=== PATIENT | male | born 1980 | race Caucasian/White ===

== ENCOUNTER 2017-01-04 11:05 | Inpatient (IN) | payer SELFPAY ==
[~2017-01-04] VITALS: Ht 188 cm; Wt 111.8 kg
[~2017-01-04 11:05] MED LIST: METF500T PO
[2017-01-04] MEDS ORDERED: ONDANSETRON INJ 2 MG/ML 2 ML VIAL ONE (11:23)
[2017-01-04] MEDS ORDERED: ONDANSETRON INJ 2 MG/ML 2 ML VIAL IV STA ×2 (11:25→11:44)
[2017-01-04] MEDS ORDERED: METF-384 PO (11:28)
[2017-01-04] MEDS ORDERED: KETOROLAC TROMETHAMINE 30 MG/ML VIAL IV STA (11:44)
[2017-01-04] MEDS ORDERED: MoRPHine SULFATE 4 MG/ML 1 ML CARP\\VIAL IV STA (11:44)
[2017-01-04] MEDS ORDERED: SODIUM CHLORIDE 0.9% 1000ML 2,000 ML IV STA (11:44)
--- NOTE | 2017-01-04 11:50 | EMERGENCY ROOM VISIT NOTE ---
History Report prepared by Cb: Ana Laura Del Cid Under the Supervision of: Dr. Padma Cespedes M.D. First contact with patient: 11:44 Chief Complaint: VOMITING Stated Complaint: VOMITING Nursing Triage Summary: Sudden onset of vomiting this AM. Generalized abdominal pain. Dry heaves at this time. History of Present Illness The patient is a 36 year old male who presents to the Emergency Room with complaints of persistent nausea and vomiting that began this morning. He also complains of generalized abdominal pain and a few episodes of diarrhea. He has not noticed any blood in his stool. The patient took 4 mg Zofran about 10 minutes ago without any relief. He denies any sick contacts. Source of History: patient Onset: this morning Position: other (GI) Timing: other (persistent) Associated Symptoms: + abdominal pain, + diarrhea Review of Systems See HPI for pertinent positives & negatives. A total of 10 systems reviewed and were otherwise negative. Past Medical & Surgical Medical Problems: (1) Diabetes mellitus type 2 in nonobese (2) Lumbar herniated disc (3) Ureterolithiasis Surgical Problems: (1) H/O lithotripsy (2) History of appendectomy (3) Hx of decompressive lumbar laminectomy Family History FH: cancer FH: diabetes mellitus FH: gallbladder disease FH: hypertension FH: kidney disease Social History Smoking Status: Never Smoker Alcohol Use: none Drug Use: none Marital Status: single Housing Status: lives with family, unknown Occupation Status: employed Current/Historical Medications Scheduled Metformin Hcl (Glucophage), 1,000 MG PO BID Sitagliptin (Januvia), 1 TAB PO DAILY Allergies Coded Allergies: No Known Allergies (Verified , 05/18/16) Physical Exam Vital Signs Date Time Temp Pulse Resp B/P Pulse Ox O2 Delivery O2 Flow Rate FiO2 01/04/17 14:47 64 20 162/95 98 Room Air 01/04/17 14:03 62 20 166/110 96 Room Air 01/04/17 14:00 60 20 166/110 95 Room Air 01/04/17 13:34 68 01/04/17 12:16 72 20 174/105 98 Room Air 01/04/17 11:09 36.4 78 18 167/114 99 Room Air Physical Exam Vital signs reviewed. General: Well-appearing 36 year old male, in no significant distress. Noted to be hypertensive. Holding an emesis bag. HEENT: No scleral icterus, PERRLA, neck supple. Atraumatic. Cardiovascular: Regular rate and rhythm, no extra sounds. Pulmonary: Clear to auscultation bilaterally, normal work of breathing. Abdomen: Soft, mild diffuse abdominal tenderness, no rebound or guarding, nondistended, positive bowel sounds. Musculoskeletal: Atraumatic, no peripheral edema. Neurologic: Patient awake alert and oriented x 3, full strength in all 4 extremities. Cranial nerves 2 through 12 grossly intact. Skin: Warm, dry, no rash Medical Decision & Procedures Laboratory Results Test 01/04/17 11:20 Total Bilirubin 0.6 mg/dl (0.2-1) Direct Bilirubin < 0.1 mg/dl (0-0.2) Aspartate Amino Transf (AST/SGOT) 15 U/L (15-37) Alanine Aminotransferase (ALT/SGPT) 43 U/L (12-78) Alkaline Phosphatase 82 U/L (45-117) Total Protein 8.7 gm/dl (6.4-8.2) Albumin 4.7 gm/dl (3.4-5.0) Lipase 169 U/L (73-393) Laboratory results per my review. Medications Administered Medications (Trade) Dose Ordered Sig/Michael Route Start Time Stop Time Status Last Admin Dose Admin Ondansetron HCl (Zofran Inj) 4 mg STK-MED ONCE .ROUTE 01/04/17 11:23 01/04/17 11:27 DC 01/04/17 11:32 4 MG Ketorolac Tromethamine (Toradol Inj) 30 mg NOW STAT IV 01/04/17 11:44 01/04/17 11:46 DC 01/04/17 11:58 30 MG Morphine Sulfate (MoRPHine SULFATE INJ) 4 mg NOW STAT IV 01/04/17 11:44 01/04/17 11:46 DC 01/04/17 11:58 4 MG Ondansetron HCl 4 mg 4 mg NOW STAT IV 01/04/17 11:44 01/04/17 11:46 DC 01/04/17 11:57 4 MG Sodium Chloride 2,000 ml @ 999 mls/hr Q2H1M STAT IV 01/04/17 11:44 01/04/17 13:44 DC 01/04/17 11:44 999 MLS/HR Promethazine HCl/ Sodium Chloride (Phenergan Inj/ Nss 50ml) 50.5 ml @ 204 mls/hr NOW STAT IV 01/04/17 13:10 01/04/17 13:24 DC 01/04/17 14:01 204 MLS/HR Insulin Aspart (novoLOG PER UNIT) 10 units NOW ONCE SC 01/04/17 15:15 01/04/17 15:16 DC 01/04/17 15:18 10 UNITS ED Course 1144: The patient was evaluated in room C7. A complete history and physical examination was performed. Ordered NSS 2000 ml @ 999 mls/hr IV, Zofran Inj 4 mg IV, Morphine Sulfate 4 mg IV, Toradol Inj 30 mg IV. 1310: I reassessed the patient. Ordered Promethazine HCl 12.5 mg/NSS 50.5 ml @ 204 mls/hr IV. 1503: Upon reevaluation, the patient is resting comfortably. I discussed laboratory and radiographic results with him. He verbalized agreement of the treatment plan. 1506: I discussed the case with Dr. Sutherland. The patient will be evaluated for further management. 1515: Ordered Insulin Aspart 10 units SC. Medical Decision Differential diagnosis: Etiologies such as appendicitis, diverticulitis, PUD, biliary pathology, UTI, pancreatitis, obstruction, mesenteric ischemia, aortic pathology, infections, inflammatory bowel disease, renal colic, as well as others were entertained. This patient was evaluated and appeared to be in some discomfort. IV access was obtained and laboratory work was drawn. The patient was placed on the monitoring specialist and found to be in a normal sinus rhythm. He was hydrated with normal saline solution given IV Zofran. On my reevaluation, the patient continued to complain of nausea and vomiting. He was given IV morphine and Zofran. Laboratory work was obtained and reveals a hyperglycemia. Patient was given subcutaneous insulin. He continued with emesis and was given IV Phenergan. At this time I think the patient is best served by an observation stay for IV hydration, glucose management and medications for nausea and vomiting. He and his mother are aware of the plan and agree. Consults Time Called: 1450 Consulting Physician: Dr. Hayes Hospitalist Returned Call: [phone] I discussed the case with her. The patient will be evaluated for further management. Impression Primary Impression: Intractable vomiting Additional Impression: Hyperglycemia Scribe Attestation The scribe's documentation has been prepared under my direction and personally reviewed by me in its entirety. I confirm that the note above accurately reflects all work, treatment, procedures, and medical decision making performed by me. Departure Information Dispostion Being Evaluated By Hospitalist Prescriptions Sitagliptin (Januvia) 100 Mg Tab 1 TAB PO DAILY for 30 Days, #30 TAB 2 Refills Prov: Gilberto Escalante MD 01/05/17 Referrals Markel Brewster M.D. (PCP) Patient Instructions My [facility] Problem Qualifiers
[2017-01-04 12:07] LABS: BASO % 0.2 %; BASO ABS # 0.02 K/uL (0-0.2); COMPLETE YES; EOS % 0.2 %; HEMATOCRIT 48.3 % (42-52); IG% 0.3 %; LYMPH ABS # 1.74 K/uL (1.2-3.4); MEAN CELL VOLUME 85.5 fL (80-100); MEAN CORPUSCULAR HEMOGLOBIN 31.9 pg (25-34); MEAN CORPUSCULAR HGB CONC 37.3 g/dl (32-36); MEAN PLATELET VOLUME 9.9 fL (7.4-10.4); MONO % 3.9 %; NEUT % 81.4 %; PLATELET COUNT 287 K/uL (130-400); RED BLOOD COUNT 5.65 M/uL (4.7-6.1); WHITE BLOOD COUNT 12.41 K/uL (4.8-10.8)
[2017-01-04 12:15] LABS: ALT/SGPT 43 U/L (12-78); BLOOD UREA NITROGEN 13 mg/dl (7-18); BUN/CREATININE RATIO 11.9 (10-20); CALCIUM 10.3 mg/dl (8.5-10.1); CARBON DIOXIDE 22 mmol/L (21-32); CHLORIDE 101 mmol/L (98-107); GLUCOSE 342 mg/dl (70-99); SODIUM 139 mmol/L (136-145)
[2017-01-04 12:18] LABS: AST/SGOT 15 U/L (15-37)
[2017-01-04 12:25] LABS: ALKALINE PHOSPHATASE 82 U/L (45-117); BETA-HYDROXYBUTYRATE 7.36 mg/dL (0.2-2.81)
[2017-01-04] MEDS ORDERED: PROMETHAZINE HCL INJ 12.5 MG in SODIUM CHLORIDE 0.9% 50ML 50 ML IV STA (13:10)
[2017-01-04] MEDS ORDERED: INSULIN ASPART 100 UNITS/ML 3 ML PEN SC STA (14:50)
[2017-01-04] MEDS ORDERED: NovoLOG PER UNIT CHARGE SC ONE (15:15)
[2017-01-04] MEDS ORDERED: D5W AND NSS 1,000 ML IV SCH (15:35)
[2017-01-04] MEDS ORDERED: INSULIN IV INFUSION PROTOCOL STA (15:35)
[2017-01-04] MEDS ORDERED: MODERATE STRESS LEVEL ONE (15:45)
[2017-01-04] MEDS ORDERED: METOCLOPRAMIDE HCL INJ 5 MG/ML 2 ML VIAL IV PRN (15:45)
[2017-01-04] MEDS ORDERED: HHS GOAL RANGE 250-350 mg/dl ONE (15:45)
[2017-01-04] MEDS ORDERED: PHARMACY GLYCEMIC MGMT CONSULT PRN (15:45)
[2017-01-04] MEDS ORDERED: CLONIDINE HCL 0.1 MG TAB PO PRN (16:00)
[2017-01-04] MEDS ORDERED: ALUMINUM/MAGNESIUM/SIMETH (MAALOX MAX) 30 ML UDC PO PRN (16:00)
[2017-01-04] MEDS ORDERED: ACETAMINOPHEN 325 MG TAB PO PRN (16:00)
[2017-01-04 16:35] VITALS: BP 180/108; PULSE 65; TEMP 36.9; O2SAT 97
--- NOTE | 2017-01-04 16:39 | Pharmacy Progress Note ---
Glycemic: Assessment & Plan Date of Service Jan 04, 2017. Assessment & Plan ED Pharmacist Glycemic Short Note * Patient may have combination HHS and DKA * HHS evidenced by elevated osmolarity. Requires significant fluid resuscitation * DKA evidenced by elevated beta-hydroxybutyric acid and anion gap. Requires insulin administration (even if BSG's within goal) * Spoke w Dr. Escalante r/e above. * Patient being transferred from ED within a few minutes - OK to wait to start insulin gtt until on floor. * Higher goal range for HHS is appropriate. Will also add in dextrose to fluids to maintain BSG's while providing insulin to manage DKA * Spoke w Aurora (RN) on PCU * Aware will need to scan protocol to pharmacy and initiate insulin gtt on floor * Spoke w glycemic pharmacist who is aware of above
[2017-01-04 16:42] LABS: MAGNESIUM 1.8 mg/dl (1.8-2.4); POTASSIUM 3.9 mmol/L (3.5-5.1)
[2017-01-04] MEDS ORDERED: PANTOprazole INJ 40 MG in SYRINGE 0 ML IV ONE (16:45)
[2017-01-04 16:51] LABS: BETA-HYDROXYBUTYRATE 6.79 mg/dL (0.2-2.81)
[2017-01-04 16:59] VITALS: Ht 188 cm; Wt 111.8 kg
[2017-01-04 17:00] VITALS: O2SAT 96
[2017-01-04] MEDS ORDERED: GLUCOSE 10 TABS/TUBE PO PRN (17:00)
[2017-01-04] MEDS ORDERED: DEXTROSE 50% 50 ML SYR IV PRN (17:00)
[2017-01-04] MEDS ORDERED: GLUCAGON FOR INJ 1 MG VIAL SQ PRN (17:00)
[2017-01-04] MEDS ORDERED: GLUCOSE 40% GEL 15 GM TUBE PO PRN (17:00)
[2017-01-04] MEDS ORDERED: INSULIN HUMAN REGULAR IV BOLUS 3 UNIT in SYRINGE 0 ML IV ONE (17:00)
[2017-01-04] MEDS: INSULIN REGULAR 250 UNITS in SODIUM CHLORIDE 0.9% 250ML 250 ML IV SCH ×2 (17:08→18:00)
[2017-01-04] MEDS: ONDANSETRON INJ 2 MG/ML 2 ML VIAL IV PRN (17:28)
[2017-01-04] MEDS ORDERED: INSULIN ASPART 100 UNITS/ML 3 ML PEN SC SCH (17:30)
[2017-01-04] MEDS ORDERED: HydrALAZINE HCL 20 MG/ML VIAL IV. PRN (17:45)
[2017-01-04] MEDS ORDERED: HydrALAZINE HCL 20 MG/ML VIAL ONE (17:46)
--- NOTE | 2017-01-04 17:48 | DIAGNOSTIC IMAGING REPORT ---
CHEST ONE VIEW PORTABLE CLINICAL HISTORY: r/o pneumonia pneumonitis COMPARISON STUDY: 11/09/2015 FINDINGS: The bones soft tissues and hemidiaphragms are normal. The cardiomediastinal silhouette is normal. The lungs are clear. The pulmonary vasculature is normal. IMPRESSION: Negative chest. Electronically signed by: Markel Rivers M.D. 01/04/2017 5:46 PM Dictated Date/Time: 01/04/2017 5:46 PM
[2017-01-04] MEDS ORDERED: LORAZEPAM 2 MG/ML 1 ML VIAL IV PRN (18:30)
[2017-01-04] MEDS ORDERED: LORAZEPAM INJ 0.5 MG in SYRINGE 0.75 ML IV PRN (18:30)
[2017-01-04 19:10] VITALS: BP 175/80; PULSE 72; TEMP 36.8; O2SAT 98
[2017-01-04 20:00] VITALS: O2SAT 98
[2017-01-04 21:14] LABS: BLOOD UREA NITROGEN 11 mg/dl (7-18); BUN/CREATININE RATIO 11.2 (10-20); CALCIUM 9.1 mg/dl (8.5-10.1); CARBON DIOXIDE 23 mmol/L (21-32); CHLORIDE 105 mmol/L (98-107); CREATININE 0.97 mg/dl (0.60-1.40); GLUCOSE 281 mg/dl (70-99); MAGNESIUM 1.7 mg/dl (1.8-2.4); POTASSIUM 3.8 mmol/L (3.5-5.1); SODIUM 139 mmol/L (136-145)
[2017-01-04 21:15] LABS: PHOSPHORUS 2.7 mg/dl (2.5-4.9)
[2017-01-04] MEDS ORDERED: D5NSS + 20MEQ KCL 1,000 ML IV ONE (22:00)
[2017-01-04] MEDS: INSULIN GLARGINE SOLOSTAR 100 UNITS/ML 3 ML PEN SC SCH (22:51)
[2017-01-04 23:27] LABS: URINE APPEARANCE CLEAR (CLEAR); URINE BILIRUBIN NEG (NEG); URINE COLOR YELLOW; URINE NITRITE NEG (NEG); URINE SPECIFIC GRAVITY 1.041 (1.000-1.030); UROBILINOGEN NEG (NEG); ZZUR CULT IF INDIC CLEAN CATCH NO
[2017-01-04 23:30] LABS: MANUAL MICROSCOPIC REQUIRED? NO; REVIEW REQ? NO
[2017-01-04] MEDS ORDERED: MAGNESIUM SULFATE 1GM / D5W 1 GM in PREMIXED IN D5W 100 ML IV ONE (23:30)
[2017-01-04 23:57] VITALS: BP 158/81; PULSE 92; TEMP 36.9; O2SAT 95
[2017-01-04 23:59] VITALS: O2SAT 95
[2017-01-05] MEDS: ONDANSETRON INJ 2 MG/ML 2 ML VIAL IV PRN (00:01)
[2017-01-05] MEDS ORDERED: TRAMADOL HCL 50 MG TAB PO PRN (00:30)
[2017-01-05] MEDS ORDERED: MoRPHine SULFATE 4 MG/ML 1 ML CARP\\VIAL IV PRN (00:30)
[2017-01-05] MEDS ORDERED: ONDANSETRON INJ 2 MG/ML 2 ML VIAL IV PRN (00:30)
[2017-01-05] MEDS ORDERED: PROMETHAZINE HCL INJ 12.5 MG in SODIUM CHLORIDE 0.9% 50ML 50 ML IV PRN (00:30)
[2017-01-05] MEDS ORDERED: OPTIRAY 320 IV PRN (01:15)
--- NOTE | 2017-01-05 01:58 | History and Physical ---
History & Physical Date & Time of Service: Jan 05, 2017 at 01:50 Chief Complaint: Hyperglycemia Primary Care Physician: Markel Brewster M.D. History of Present Illness Source: patient, clinic records 36 year old male with history of DM 2 presenting with nausea and vomiting. Patient states he was doing fine until this morning when he started to have nausea and non bilous, non bloody vomiting associated with diarrhea. He denies abdominal pain, headache, dizziness, chest pain, palpitations, changes with urination. At the ER, patient was noted to be hyperglycemic with elevated anion gap and Betahydroxybutiric acid. He was given Novolog 10 units and antiemetics. On exam, patient states he feels somewhat better. Nausea somewhat improving. Denies active chest pain, dyspnea, cough, abdominal pain. Denies other symptoms. Past Medical/Surgical History Medical Problems: (1) Diabetes mellitus type 2 in nonobese Status: Chronic (2) Lumbar herniated disc Status: Chronic Surgical Problems: (1) H/O lithotripsy Status: Resolved (2) History of appendectomy Status: Resolved (3) Hx of decompressive lumbar laminectomy Status: Resolved Family History FH: cancer FH: diabetes mellitus FH: gallbladder disease FH: hypertension FH: kidney disease Social History Smoking Status: Former Smoker Drug Use: none Marital Status: single Housing status: lives with significant other Occupational Status: employed Immunizations History of Influenza Vaccine: No History of Tetanus Vaccine?: Yes Tetanus Immunization Date: Sep 20, 2007 History of Pneumococcal: No History of Hepatitis B Vaccine: Unknown Multi-Drug Resistant Organisms History of MDRO: No Allergies Coded Allergies: No Known Allergies (Verified , 05/18/16) Home Medications Scheduled Metformin Hcl (Glucophage), 1,000 MG PO BID Review of Systems Constitutional- no fever; no weight loss Eyes- no acute visual changes ENT- no sinus drainage; no pharyngitis Pulmonary- no cough, no wheezing, no shortness of breath Cardiac- no chest pain, no palpitations, no orthopnea, no dependent edema GI- (+) as noted above - no dysuria, no hematuria Musculoskeletal- no arthralgias, no myalgias Derm- no rashes, no new skin lesions, no changing skin lesions Hematologic- no unusual bruising, no unusual bleeding Lymphatics- no adenopathy Endocrine- no polyuria or polydipsia; no heat or cold intolerance Neuro- no headaches, no focal neurologic symptoms Psych- no anxiety, no depression Physical Exam Vital Signs Date Time Temp Pulse Resp B/P Pulse Ox O2 Delivery O2 Flow Rate FiO2 01/04/17 23:59 95 Room Air 01/04/17 23:57 36.9 92 17 158/81 95 Room Air 01/04/17 20:00 98 Room Air 01/04/17 19:10 36.8 72 18 175/80 98 Room Air 01/04/17 17:00 96 Room Air 01/04/17 16:35 36.9 65 18 180/108 97 Room Air 01/04/17 14:47 64 20 162/95 98 Room Air 01/04/17 14:03 62 20 166/110 96 Room Air 01/04/17 14:00 60 20 166/110 95 Room Air 01/04/17 13:34 68 01/04/17 12:16 72 20 174/105 98 Room Air 01/04/17 11:09 36.4 78 18 167/114 99 Room Air General Appearance: WD/WN, no apparent distress Head: normocephalic, atraumatic Eyes: normal inspection, EOMI, sclerae normal ENT: normal ENT inspection, hearing grossly normal, pharynx normal Neck: supple, no adenopathy, thyroid normal, no JVD, trachea midline Respiratory/Chest: chest non-tender, lungs clear, normal breath sounds, no respiratory distress, no accessory muscle use Cardiovascular: regular rate, rhythm, no edema, no JVD, no murmur Abdomen/GI: normal bowel sounds, non tender, soft, no organomegaly Back: normal inspection, no CVA tenderness Extremities/Musculoskelatal: normal inspection, no calf tenderness, no pedal edema Neurologic/Psych: foot specialist II-XII nml as tested, no motor/sensory deficits, alert, normal mood/affect, normal reflexes, oriented x 3 Skin: normal color, warm/dry, no rash Lymphatic: no adenopathy Diagnostics Laboratory Results Results Past 24 Hours Test 01/04/17 11:20 01/04/17 16:05 01/04/17 16:33 01/04/17 18:00 Range/Units White Blood Count 12.41 4.8-10.8 K/uL Red Blood Count 5.65 4.7-6.1 M/uL Hemoglobin 18.0 14.0-18.0 g/dL Hematocrit 48.3 42-52 % Mean Corpuscular Volume 85.5 80-100 fL Mean Corpuscular Hemoglobin 31.9 25-34 pg Mean Corpuscular Hemoglobin Concent 37.3 32-36 g/dl Platelet Count 287 130-400 K/uL Mean Platelet Volume 9.9 7.4-10.4 fL Neutrophils (%) (Auto) 81.4 % Lymphocytes (%) (Auto) 14.0 % Monocytes (%) (Auto) 3.9 % Eosinophils (%) (Auto) 0.2 % Basophils (%) (Auto) 0.2 % Neutrophils # (Auto) 10.11 1.4-6.5 K/uL Lymphocytes # (Auto) 1.74 1.2-3.4 K/uL Monocytes # (Auto) 0.48 0.11-0.59 K/uL Eosinophils # (Auto) 0.02 0-0.5 K/uL Basophils # (Auto) 0.02 0-0.2 K/uL RDW Standard Deviation 39.6 36.4-46.3 fL RDW Coefficient of Variation 12.7 11.5-14.5 % Immature Granulocyte % (Auto) 0.3 % Immature Granulocyte # (Auto) 0.04 0.00-0.02 K/uL Sodium Level 139 140 136-145 mmol/L Potassium Level 4.0 3.9 3.5-5.1 mmol/L Chloride Level 101 106 98-107 mmol/L Carbon Dioxide Level 22 22 21-32 mmol/L Anion Gap 16.0 12.0 3-11 mmol/L Blood Urea Nitrogen 13 12 7-18 mg/dl Creatinine 1.10 1.00 0.60-1.40 mg/dl Est Creatinine Clear Calc Drug Dose 118.9 130.8 ml/min Estimated GFR () 98.9 110.9 Estimated GFR (Non- 85.3 95.7 BUN/Creatinine Ratio 11.9 12.0 10-20 Random Glucose 342 303 70-99 mg/dl Osmolality 310 305 280-300 mOsm/kg Calcium Level 10.3 9.0 8.5-10.1 mg/dl Magnesium Level 2.0 1.8 1.8-2.4 mg/dl Total Bilirubin 0.6 0.2-1 mg/dl Direct Bilirubin < 0.1 0-0.2 mg/dl Aspartate Amino Transf (AST/SGOT) 15 15-37 U/L Alanine Aminotransferase (ALT/SGPT) 43 12-78 U/L Alkaline Phosphatase 82 45-117 U/L Total Protein 8.7 6.4-8.2 gm/dl Albumin 4.7 3.4-5.0 gm/dl Lipase 169 73-393 U/L Beta-Hydroxybutyric Acid 7.36 6.79 0.2-2.81 mg/dL Venous Blood pH 7.43 7.36-7.41 Lactic Acid Level 3.2 0.4-2.0 mmol/L Phosphorus Level 3.0 2.5-4.9 mg/dl Bedside Glucose 293 249 70-99 mg/dl Test 01/04/17 19:07 01/04/17 19:59 01/04/17 20:22 01/04/17 21:00 Range/Units Bedside Glucose 266 253 257 70-99 mg/dl Venous Blood pH 7.41 7.36-7.41 Sodium Level 139 136-145 mmol/L Potassium Level 3.8 3.5-5.1 mmol/L Chloride Level 105 98-107 mmol/L Carbon Dioxide Level 23 21-32 mmol/L Anion Gap 11.0 3-11 mmol/L Blood Urea Nitrogen 11 7-18 mg/dl Creatinine 0.97 0.60-1.40 mg/dl Est Creatinine Clear Calc Drug Dose 138.9 ml/min Estimated GFR () 115.1 Estimated GFR (Non- 99.3 BUN/Creatinine Ratio 11.2 10-20 Random Glucose 281 70-99 mg/dl Lactic Acid Level 3.0 0.4-2.0 mmol/L Calcium Level 9.1 8.5-10.1 mg/dl Phosphorus Level 2.7 2.5-4.9 mg/dl Magnesium Level 1.7 1.8-2.4 mg/dl Troponin I < 0.015 0-0.045 ng/ml Test 01/04/17 22:09 01/04/17 23:02 01/04/17 23:15 01/05/17 00:05 Range/Units Bedside Glucose 245 247 264 70-99 mg/dl Urine Color YELLOW Urine Appearance CLEAR CLEAR Urine pH 5.0 4.5-7.5 Urine Specific [place] 1.041 1.000-1.030 Urine Protein NEG NEG Urine Glucose (UA) 3+ NEG Urine Ketones 1+ NEG Urine Occult Blood NEG NEG Urine Nitrite NEG NEG Urine Bilirubin NEG NEG Urine Urobilinogen NEG NEG Urine Leukocyte Esterase NEG NEG Test 01/05/17 00:54 01/05/17 00:58 Range/Units Lactic Acid Level 2.1 0.4-2.0 mmol/L Bedside Glucose 248 70-99 mg/dl Microbiology Results 01/04/17 Blood Culture, Received Pending 01/04/17 Blood Culture, Received Pending 01/04/17 Urine Culture, Received Pending Diagnostic Radiology CXR: no acute findings EKG SR, no signs of acute infarct Impression Assessment and Plan 36 year old male with history of DM 2 presenting with nausea and vomiting. POSSIBLE HHS DM TYPE 2 - Insulin drip Labs q4h IV fluids - check A1c - no clear source of infection at this time patient admits to non compliance with medication and diet HYPERTENSION - may have underlying essential HTN - PRN Hydralazine for now monitor ELEVATED LACTIC ACID - IV fluids monitor DVT PROPHYLAXIS SCDS DIspo pending Advanced Directives Existing Living Will: No Existing Power of Machine Maintenance Technician: No VTE Prophylaxis VTE Risk Assessment Done? Y/N: Yes Risk Level: Moderate
[2017-01-05 03:39] VITALS: BP 143/78; PULSE 104; TEMP 37.2; O2SAT 96
[2017-01-05 04:00] VITALS: O2SAT 96
--- NOTE | 2017-01-05 04:10 | Pharmacy Progress Note ---
Glycemic Control Intl Consult Date of Service Jan 05, 2017. Scope Glycemic Pharmacist consulted by Dr Escalante on 01/04/17 for glycemic control and to write orders per formerly [facility] inpatient glycemic control protocol Objective Weight (Kilograms): 111.800 Accuchecks BSG (last 24hrs): Test 01/04/17 11:20 01/04/17 16:05 01/04/17 16:33 01/04/17 18:00 Random Glucose 342 mg/dl (70-99) 303 mg/dl (70-99) Bedside Glucose 293 mg/dl (70-99) 249 mg/dl (70-99) Test 01/04/17 19:07 01/04/17 19:59 01/04/17 20:22 01/04/17 21:00 Bedside Glucose 266 mg/dl (70-99) 253 mg/dl (70-99) 257 mg/dl (70-99) Random Glucose 281 mg/dl (70-99) Test 01/04/17 22:09 01/04/17 23:02 01/05/17 00:05 01/05/17 00:58 Bedside Glucose 245 mg/dl (70-99) 247 mg/dl (70-99) 264 mg/dl (70-99) 248 mg/dl (70-99) Test 01/05/17 02:01 01/05/17 03:02 Bedside Glucose 282 mg/dl (70-99) 243 mg/dl (70-99) Laboratory Data (last 24hrs) Test 01/04/17 11:20 01/04/17 16:05 01/04/17 20:22 Anion Gap 16.0 mmol/L 12.0 mmol/L 11.0 mmol/L BUN/Creatinine Ratio 11.9 12.0 11.2 Blood Urea Nitrogen 13 mg/dl 12 mg/dl 11 mg/dl Creatinine 1.10 mg/dl 1.00 mg/dl 0.97 mg/dl Potassium Level 4.0 mmol/L 3.9 mmol/L 3.8 mmol/L Sodium Level 139 mmol/L 140 mmol/L 139 mmol/L White Blood Count 12.41 K/uL Red Blood Count 5.65 M/uL Hemoglobin 18.0 g/dL Hematocrit 48.3 % Mean Corpuscular Volume 85.5 fL Mean Corpuscular Hemoglobin 31.9 pg Mean Corpuscular Hemoglobin Concent 37.3 g/dl Platelet Count 287 K/uL Mean Platelet Volume 9.9 fL Neutrophils (%) (Auto) 81.4 % Lymphocytes (%) (Auto) 14.0 % Monocytes (%) (Auto) 3.9 % Eosinophils (%) (Auto) 0.2 % Basophils (%) (Auto) 0.2 % Neutrophils # (Auto) 10.11 K/uL Lymphocytes # (Auto) 1.74 K/uL Monocytes # (Auto) 0.48 K/uL Eosinophils # (Auto) 0.02 K/uL Basophils # (Auto) 0.02 K/uL Recent Pertinent Medications Outpatient Anti-diabetic Regimen: * metformin 1000mg PO BID * admits to non-compliance * A1c unknown at time of consult The patient is currently receiving: * IV insulin infusion * moderate severity * Goal 250-350mg/dL * NovoLog PC and HS Assessment & Plan ASSESSMENT: * ADA & AACE recommend a goal blood sugar range 140-180 mg/dl for the majority of critically ill & non-critically ill patients. However, more stringent targets may be selected in individual cases. Higher goal range used initially for DKA/HHS picture. 01/04/17 * 36 y/o type 2 diabetic who has been feeling unwell. Admission today with BSGs elevated. * IV insulin infusion and IV fluids started * BSGs within initial goal range --> continue to lower goal range as BSGs continue to fall with a final goal of 140-180mg/dL (may even push lower since patient is young) * IV fluids contain dextrose may contribute to insulin resistance at this time * non-compliance as an outpatient - A1c is on order to assess home regimen PLAN FOR INPATIENT GLYCEMIC CONTROL: * Continue IV insulin infusion * moderate protocol * Goal range: 250-350mg/dL --> 150-250mg/dL -->140-180mg/dL * NovoLog PC and HS * Begin Lantus per weight based dosing for ease of transition from IV to SQ insulin in AM * Lantus 20 units SQ BID * Set CHO ratio of 1 unit per 7g of CHO consumed * A1c on order * add to discharge instructions RECOMMENDATIONS FOR DISCHARGE: * pending * Please note that the plan above was derived based on current level of insulin resistance and hospital stress. These recommendations are appropriate for inpatient admission only. Plan of care upon discharge will need to be reassessed to avoid potential outpatient hypo/hyperglycemia. Thank you.
[2017-01-05 06:00] LABS: BASO % 0.1 %; BASO ABS # 0.01 K/uL (0-0.2); COMPLETE YES; EOS % 0.1 %; HEMATOCRIT 38.9 % (42-52); IG% 0.2 %; LYMPH % 19.6 %; LYMPH ABS # 2.66 K/uL (1.2-3.4); MEAN CELL VOLUME 85.7 fL (80-100); MEAN CORPUSCULAR HEMOGLOBIN 30.8 pg (25-34); MEAN PLATELET VOLUME 8.8 fL (7.4-10.4); MONO % 7.9 %; NEUT % 72.1 %; PLATELET COUNT 221 K/uL (130-400); RED BLOOD COUNT 4.54 M/uL (4.7-6.1); WHITE BLOOD COUNT 13.59 K/uL (4.8-10.8)
[2017-01-05] MEDS: INSULIN GLARGINE SOLOSTAR 100 UNITS/ML 3 ML PEN SC SCH (06:20)
[2017-01-05 06:25] LABS: BUN/CREATININE RATIO 9.6 (10-20); CALCIUM 8.5 mg/dl (8.5-10.1); CREATININE 0.86 mg/dl (0.60-1.40); POTASSIUM 3.8 mmol/L (3.5-5.1)
[2017-01-05 06:26] LABS: MAGNESIUM 2.1 mg/dl (1.8-2.4)
[2017-01-05 06:32] LABS: ESTIMATED AVERAGE GLUCOSE 209 mg/dl; HA1C FLAG Normal (Normal)
--- NOTE | 2017-01-05 06:45 | DIAGNOSTIC IMAGING REPORT ---
ABDOMEN AND PELVIS CT WITH IV CONTRAST CT DOSE: 1053.51 mGy.cm HISTORY: Pain abd pain nv TECHNIQUE: Multiaxial CT images of the abdomen and pelvis were performed following the use of intravenous contrast. COMPARISON STUDY: None. FINDINGS: Lung bases are clear. Mild fatty infiltration of liver. Pancreas and spleen are unremarkable. Kidneys are negative for hydronephrosis. Nonobstructive bowel pattern. Mild chronic sigmoid diverticulosis. Negative appendix. IMPRESSION: Mild chronic sigmoid diverticulosis. No acute process of the abdomen or pelvis. Electronically signed by: Markel Rivers M.D. 01/05/2017 6:44 AM Dictated Date/Time: 01/05/2017 6:42 AM
[2017-01-05] MEDS: INSULIN ASPART 100 UNITS/ML 3 ML PEN SC SCH ×2 (07:47→14:25)
[2017-01-05 07:51] VITALS: BP 135/75; PULSE 91; TEMP 36.3; O2SAT 95
[2017-01-05] MEDS ORDERED: PANTOprazole INJ 40 MG in SYRINGE 0 ML IV SCH (11:00)
[2017-01-05 11:02] VITALS: BP 132/84; PULSE 82; TEMP 37.2; O2SAT 98
--- NOTE | 2017-01-05 13:42 | Progress Note ---
Medicine Progress Note Date & Time of Visit: Jan 05, 2017 at 13:36. Subjective sitting up in bed, comfortable, bright, alert, in good spirits states he feels much better, back to baseline denies nausea/vomiting, abdominal pain no chest pain, dyspnea, palpitations, dizziness, headache, changes with urination or bowel movement denies other symptoms states he is ready and would like to be discharged today significant other at bedside agrees Objective Last 8 Hrs Date Time Temp Pulse Resp B/P Pulse Ox O2 Delivery O2 Flow Rate FiO2 01/05/17 11:02 37.2 82 18 132/84 98 Room Air 01/05/17 07:51 36.3 91 18 135/75 95 Room Air Physical Exam: General- adult , oriented x 3, not in distress, speaks in sentences with no effort Eyes-anicteric Neck- no JVD Lungs- clear breath sounds bilaterally, no rales/wheezes Heart- regular rhythm; no murmur, normal rate Abdomen- normal bowel sounds, soft, nontender Extremities- no pretibial edema, no calf tenderness Neuro- alert, oriented x 3; no gross deficits Skin- warm & dry Laboratory Results: Last 24 Hours Test 01/04/17 16:05 01/04/17 16:33 01/04/17 18:00 01/04/17 19:07 Venous Blood pH 7.43 Sodium Level 140 mmol/L Potassium Level 3.9 mmol/L Chloride Level 106 mmol/L Carbon Dioxide Level 22 mmol/L Anion Gap 12.0 mmol/L Blood Urea Nitrogen 12 mg/dl Creatinine 1.00 mg/dl Est Creatinine Clear Calc Drug Dose 130.8 ml/min Estimated GFR () 110.9 Estimated GFR (Non- 95.7 BUN/Creatinine Ratio 12.0 Random Glucose 303 mg/dl Estimated Average Glucose 209 mg/dl Hemoglobin A1c 8.9 % Osmolality 305 mOsm/kg Lactic Acid Level 3.2 mmol/L Calcium Level 9.0 mg/dl Phosphorus Level 3.0 mg/dl Magnesium Level 1.8 mg/dl Beta-Hydroxybutyric Acid 6.79 mg/dL Bedside Glucose 293 mg/dl 249 mg/dl 266 mg/dl Test 01/04/17 19:59 01/04/17 20:22 01/04/17 21:00 01/04/17 22:09 Bedside Glucose 253 mg/dl 257 mg/dl 245 mg/dl Venous Blood pH 7.41 Sodium Level 139 mmol/L Potassium Level 3.8 mmol/L Chloride Level 105 mmol/L Carbon Dioxide Level 23 mmol/L Anion Gap 11.0 mmol/L Blood Urea Nitrogen 11 mg/dl Creatinine 0.97 mg/dl Est Creatinine Clear Calc Drug Dose 138.9 ml/min Estimated GFR () 115.1 Estimated GFR (Non- 99.3 BUN/Creatinine Ratio 11.2 Random Glucose 281 mg/dl Lactic Acid Level 3.0 mmol/L Calcium Level 9.1 mg/dl Phosphorus Level 2.7 mg/dl Magnesium Level 1.7 mg/dl Troponin I < 0.015 ng/ml Test 01/04/17 23:02 01/04/17 23:15 01/05/17 00:05 01/05/17 00:54 Bedside Glucose 247 mg/dl 264 mg/dl Urine Color YELLOW Urine Appearance CLEAR Urine pH 5.0 Urine Specific [place] 1.041 Urine Protein NEG Urine Glucose (UA) 3+ Urine Ketones 1+ Urine Occult Blood NEG Urine Nitrite NEG Urine Bilirubin NEG Urine Urobilinogen NEG Urine Leukocyte Esterase NEG Lactic Acid Level 2.1 mmol/L Test 01/05/17 00:58 01/05/17 02:01 01/05/17 03:02 01/05/17 03:59 Bedside Glucose 248 mg/dl 282 mg/dl 243 mg/dl 219 mg/dl Test 01/05/17 05:07 01/05/17 05:41 01/05/17 05:57 01/05/17 07:29 Bedside Glucose 217 mg/dl 203 mg/dl 149 mg/dl White Blood Count 13.59 K/uL Red Blood Count 4.54 M/uL Hemoglobin 14.0 g/dL Hematocrit 38.9 % Mean Corpuscular Volume 85.7 fL Mean Corpuscular Hemoglobin 30.8 pg Mean Corpuscular Hemoglobin Concent 36.0 g/dl Platelet Count 221 K/uL Mean Platelet Volume 8.8 fL Neutrophils (%) (Auto) 72.1 % Lymphocytes (%) (Auto) 19.6 % Monocytes (%) (Auto) 7.9 % Eosinophils (%) (Auto) 0.1 % Basophils (%) (Auto) 0.1 % Neutrophils # (Auto) 9.80 K/uL Lymphocytes # (Auto) 2.66 K/uL Monocytes # (Auto) 1.08 K/uL Eosinophils # (Auto) 0.01 K/uL Basophils # (Auto) 0.01 K/uL RDW Standard Deviation 40.5 fL RDW Coefficient of Variation 12.9 % Immature Granulocyte % (Auto) 0.2 % Immature Granulocyte # (Auto) 0.03 K/uL Sodium Level 140 mmol/L Potassium Level 3.8 mmol/L Chloride Level 108 mmol/L Carbon Dioxide Level 24 mmol/L Anion Gap 8.0 mmol/L Blood Urea Nitrogen 8 mg/dl Creatinine 0.86 mg/dl Est Creatinine Clear Calc Drug Dose 156.5 ml/min Estimated GFR () 128.4 Estimated GFR (Non- 110.8 BUN/Creatinine Ratio 9.6 Random Glucose 214 mg/dl Lactic Acid Level 1.7 mmol/L Calcium Level 8.5 mg/dl Magnesium Level 2.1 mg/dl Test 01/05/17 10:41 Bedside Glucose 141 mg/dl Date/Time Source Procedure Growth Status 01/04/17 17:36 Blood Blood Culture Pending Received 01/04/17 17:32 Blood Blood Culture Pending Received 01/04/17 23:15 Urine , Clean Catch Urine Culture - Preliminary NO GROWTH - LESS THAN 1,000 COLONIES/... Resulted Assessment & Plan 36 year old male with history of DM 2 presenting with nausea and vomiting. HHS DM TYPE 2 - Insulin drip off, BSGs improved gap closed IV fluids - check A1c: 8.9 - no clear source of infection at this time patient admits to non compliance with medication and diet - patient would like to be discharged today add Januvia 100mg po daily, continue Metformin 1000mg BID strict ADA diet check BSGs at least BID ff up with PCP this week - discussed at length with patient and significant other and they are both agreeable and comfortable with plan of care HYPERTENSION likely stress related - systolic bp 130s, asymptomatic - low salt diet, lifestyle modifications ff up with PCP ELEVATED LACTIC ACID - IV fluids monitor - resolved DVT PROPHYLAXIS SCDS DIspo patient and significant other requesting for discharge today d/c home ff up with PCP in 3-5 days Current Inpatient Medications: Current Inpatient Medications Medications (Trade) Dose Ordered Sig/Michael Route Start Time Stop Time Status Last Admin Dose Admin Miscellaneous Information (Consult Glycemic Management Pharmacy) 1 ea UD PRN N/A 3/17/17 15:45 02/03/17 15:44 Metoclopramide HCl 10 mg 10 mg Q6H PRN IV 01/04/17 15:45 02/03/17 15:44 Pantoprazole Sodium/Syringe (Protonix Inj/ Syringe) 10 ml @ 5 mls/min DAILY@11 IV 01/05/17 11:00 02/04/17 10:59 01/05/17 11:24 5 MLS/MIN Clonidine HCl (Catapres Tab) 0.1 mg Q6H PRN PO 01/04/17 16:00 02/03/17 15:59 Acetaminophen (Tylenol Tab) 650 mg Q4H PRN PO 01/04/17 16:00 02/03/17 15:59 Al Hydrox/Mg Hydrox/Simethicone (Maalox Max Susp) 15 ml Q4H PRN PO 01/04/17 16:00 02/03/17 15:59 Glucose (Glucose 40% Gel) UD PRN PO 01/04/17 17:00 02/03/17 16:59 Glucose (Glucose Chew Tab) 1 tabs UD PRN PO 01/04/17 17:00 02/03/17 16:59 Dextrose (Dextrose 50% 50ML Syringe) 50 ml UD PRN IV 01/04/17 17:00 02/03/17 16:59 Glucagon (Glucagon Inj) 1 mg UD PRN SQ 01/04/17 17:00 02/03/17 16:59 Hydralazine HCl (HydrALAZINE INJ) 10 mg Q6H PRN IV. 01/04/17 17:45 02/03/17 17:44 Lorazepam 0.5 mg 0.5 mg Q6H PRN IV 01/04/17 18:30 02/03/17 18:29 01/04/17 18:40 0.5 MG Lorazepam/Syringe (Ativan Inj/ Syringe) 1 ml @ 1 mls/min Q6H PRN IV 01/04/17 18:30 02/03/17 18:29 Insulin Glargine (Lantus Solostar Pen) 20 unit BID SC 01/04/17 22:30 02/03/17 22:29 Future hold 01/05/17 06:20 20 UNIT Ondansetron HCl 4 mg 4 mg Q6H PRN IV 01/05/17 00:30 02/04/17 00:29 Promethazine HCl/ Sodium Chloride (Phenergan Inj/ Nss 50ml) 50.5 ml @ 204 mls/hr Q6H PRN IV 01/05/17 00:30 02/04/17 00:29 Tramadol HCl (Ultram Tab) 25 mg Q6H PRN PO 01/05/17 00:30 02/04/17 00:29 Morphine Sulfate (MoRPHine SULFATE INJ) 4 mg Q6H PRN IV 01/05/17 00:30 01/19/17 00:29 01/05/17 02:16 4 MG Ioversol (Optiray 320) 125 ml UD PRN IV 01/05/17 01:15 01/09/17 01:14 Insulin Aspart (novoLOG ASPART) SLIDING SCALE ACHS SC 01/05/17 07:00 02/04/17 06:59 01/05/17 07:47 10 UNITS
[2017-01-05] MEDS ORDERED: SITA1TAB27 PO (13:47)
--- NOTE | 2017-01-05 13:55 | Discharge Instructions ---
Discharge Instructions Date of Service Jan 05, 2017. Admission Reason for Admission: Hyperglycemia Discharge Discharge Diagnosis / Problem: HYPERGLYCEMIA HYPEROSMOLAR STATE Discharge Goals Goal(s): Diagnostic testing, Therapeutic intervention Activity Recommendations Activity Limitations: as noted below (NO HEAVY EXERTION UNTIL RE-EVALUATED BY PRIMARY CARE PHYSICIAN) . Instructions / Follow-Up Instructions / Follow-Up PLEASE TAKE MEDICATIONS REGULARLY AND ADHERE TO DIABETIC DIET ADVISED. START JANUVIA TOMORROW 01/06/17. ENSURE ADEQUATE DAILY FLUID INTAKE. CALL PRIMARY CARE PHYSICIAN OR RETURN TO ER IMMEDIATELY IF WITH RECURRENCE OF SYMPTOMS. FOLLOW UP WITH DR. HARDWICK IN 3-5 DAYS. CLINIC TO CALL PATIENT WITH APPOINTMENT. Current Hospital Diet Patient's current hospital diet: Clear Liquid Diet, AHA Diet (Heart Healthy), Diabetes Type 2 Diet Discharge Diet Recommended Diet: AHA Diet (Heart Healthy), Diabetes Type 2 Diet Pending Studies Studies pending at discharge: no Laboratory Results Hemoglobin A1c Test 01/04/17 16:05 Range/Units Estimated Average Glucose 209 mg/dl Hemoglobin A1c 8.9 H 4.5-5.6 % Medical Emergencies . Who to Call and When: Medical Emergencies: If at any time you feel your situation is an emergency, please call 911 immediately. . Non-Emergent Contact Non-Emergency issues call your: Primary Care Provider Call Non-Emergent contact if: you have a fever, you have any medication questions . Past History Medical & Surgical History: (1) Ureterolithiasis (2) Intractable vomiting (3) Hyperglycemia (4) Diabetes mellitus type 2 in nonobese (5) H/O lithotripsy (6) Hx of decompressive lumbar laminectomy . "Provider Documentation" section prepared by Gilberto Escalante. VTE Core Measure Inpt VTE Proph given/why not?: SCD's
[2017-01-05 14:03] VITALS: BP 132/84; PULSE 82; TEMP 37.2; O2SAT 98
--- NOTE | 2017-01-05 14:05 | Discharge Summary ---
Discharge Summary Date of Service Jan 05, 2017. Discharge Summary Admission Date: Jan 04, 2017 at 15:22 Discharge Date: Jan 05, 2017 Discharge Disposition: Home Principal Diagnosis: HYPERGLYCEMIC HYPEROSMOLAR STATE DM TYPE 2 Secondary Diagnoses/Problems: PLEASE REFER TO HOSPITAL COURSE BELOW. Procedures: ABDOMEN AND PELVIS CT WITH IV CONTRAST CT DOSE: 1053.51 mGy.cm HISTORY: Pain abd pain nv TECHNIQUE: Multiaxial CT images of the abdomen and pelvis were performed following the use of intravenous contrast. COMPARISON STUDY: None. FINDINGS: Lung bases are clear. Mild fatty infiltration of liver. Pancreas and spleen are unremarkable. Kidneys are negative for hydronephrosis. Nonobstructive bowel pattern. Mild chronic sigmoid diverticulosis. Negative appendix. IMPRESSION: Mild chronic sigmoid diverticulosis. No acute process of the abdomen or pelvis. Pending Studies/Follow-Up: PLEASE MONITOR BLOOD GLUCOSE. JANUVIA ADDED. Medication Reconciliation New Medications: Sitagliptin (Januvia) 100 Mg Tab 1 TAB PO DAILY for 30 Days, #30 TAB 2 Refills Continued Medications: Metformin Hcl (Glucophage) 1,000 Mg Tab 1000 MG PO BID, #180 Admission Information HPI (per Admitting provider): 36 year old male with history of DM 2 presenting with nausea and vomiting. Patient states he was doing fine until this morning when he started to have nausea and non bilous, non bloody vomiting associated with diarrhea. He denies abdominal pain, headache, dizziness, chest pain, palpitations, changes with urination. At the ER, patient was noted to be hyperglycemic with elevated anion gap and Betahydroxybutiric acid. He was given Novolog 10 units and antiemetics. On exam, patient states he feels somewhat better. Nausea somewhat improving. Denies active chest pain, dyspnea, cough, abdominal pain. Denies other symptoms. Physical Exam (per Admitting): General Appearance: WD/WN, no apparent distress Head: normocephalic, atraumatic Eyes: normal inspection, EOMI, sclerae normal ENT: normal ENT inspection, hearing grossly normal, pharynx normal Neck: supple, no adenopathy, thyroid normal, no JVD, trachea midline Respiratory/Chest: chest non-tender, lungs clear, normal breath sounds, no respiratory distress, no accessory muscle use Cardiovascular: regular rate, rhythm, no edema, no JVD, no murmur Abdomen/GI: normal bowel sounds, non tender, soft, no organomegaly Back: normal inspection, no CVA tenderness Extremities/Musculoskelatal: normal inspection, no calf tenderness, no pedal edema Neurologic/Psych: radio installer II-XII nml as tested, no motor/sensory deficits, alert , normal mood/affect, normal reflexes, oriented x 3 Skin: normal color, warm/dry, no rash Lymphatic: no adenopathy Hospital Course 36 year old male with history of DM 2 presenting with nausea and vomiting. HYPERGLYCEMIC HYPEROSMOLAR STATE DM TYPE 2 - presented with nausea/vomiting, hypertension BSG 342 , Serum Osm 310 Anion gap 16, lactic acid elevated 3.2 patient admits to non compliance with medication and diet no clear signs of infection - placed on insulin drip for a few hours, then transitioned to Lantus BID - BSG improved to 140s clinically much improved - declines adjunct Insulin at this time but very motivated to adhere to oral medications and DM diet - add Januvia 100mg daily continue Metformin 1000mg BID DM diet - ff up with Dr. Brewster next week HYPERTENSION likely stress related - systolic bp up to 180s on admission day, improved to 130s, asymptomatic - low salt diet, lifestyle modifications ff up with PCP ELEVATED LACTIC ACID - lactic acid 3.2 - likely from nausea/vomiting, dehydration - IV fluids given resolved DIsposition d/c home ff up with PCP in 3-5 days Total time spent on discharge = 40 minutes This includes examination of the patient, discharge planning, medication reconciliation, and communication with other providers. Discharge Instructions Discharge Instructions Date of Service Jan 05, 2017. Admission Reason for Admission: Hyperglycemia Discharge Discharge Diagnosis / Problem: HYPERGLYCEMIA HYPEROSMOLAR STATE Discharge Goals Goal(s): Diagnostic testing, Therapeutic intervention Activity Recommendations Activity Limitations: as noted below (NO HEAVY EXERTION UNTIL RE-EVALUATED BY PRIMARY CARE PHYSICIAN) . Instructions / Follow-Up Instructions / Follow-Up PLEASE TAKE MEDICATIONS REGULARLY AND ADHERE TO DIABETIC DIET ADVISED. ENSURE ADEQUATE DAILY FLUID INTAKE. CALL PRIMARY CARE PHYSICIAN OR RETURN TO ER IMMEDIATELY IF WITH RECURRENCE OF SYMPTOMS. FOLLOW UP WITH DR. BREWSTER IN 3-5 DAYS. CLINIC TO CALL PATIENT WITH APPOINTMENT. Current Hospital Diet Patient's current hospital diet: Clear Liquid Diet, AHA Diet (Heart Healthy), Diabetes Type 2 Diet Discharge Diet Recommended Diet: AHA Diet (Heart Healthy), Diabetes Type 2 Diet Pending Studies Studies pending at discharge: no Laboratory Results Hemoglobin A1c Test 01/04/17 16:05 Range/Units Estimated Average Glucose 209 mg/dl Hemoglobin A1c 8.9 H 4.5-5.6 % Medical Emergencies . Who to Call and When: Medical Emergencies: If at any time you feel your situation is an emergency, please call 911 immediately. . Non-Emergent Contact Non-Emergency issues call your: Primary Care Provider Call Non-Emergent contact if: you have a fever, you have any medication questions . Past History Medical & Surgical History: (1) Ureterolithiasis (2) Intractable vomiting (3) Hyperglycemia (4) Diabetes mellitus type 2 in nonobese (5) H/O lithotripsy (6) Hx of decompressive lumbar laminectomy . "Provider Documentation" section prepared by Gilberto Escalante. VTE Core Measure Inpt VTE Proph given/why not?: SCD's
== END 2017-01-05 14:30 | disposition home or self-care (01) | DRG 637 ==
LOC: ENRESERVDT → ENRESERVTM → C.EDB 11:06 → C.2T 15:22
PROVIDERS: ADMIT Internal Medicine; ATTEND Internal Medicine
DX: E11.65 Type 2 diabetes mellitus with hyperglycemia (principal); E11.00 Type 2 diabetes mellitus with hyperosmolarity without nonketotic hyperglycemic-hyperosmolar coma (NKHHC); Z83.3 Family history of diabetes mellitus; Z83.79 Family history of other diseases of the digestive system; Z82.49 Family history of ischemic heart disease and other diseases of the circulatory system; Z84.1 Family history of disorders of kidney and ureter; Z91.19 Patient's noncompliance with other medical treatment and regimen

== ENCOUNTER 2020-08-05 18:19 | Observation (INO) ==
--- OUTSIDE RECORDS SUMMARY | 2020-08-05 18:21 | External Medical Summary | Continuity of Care Document ---
:1980 Author Name Alex Santana Address Unavailable Unavailable , Care Team Providers Name Role Phone Jayesh Santaan Unavailable [email or web address] LOVE Unavailable Unavailable Unavailable Unavailable Unavailable Problems Diabetes mellitus (250.00) (E11.9) Calculus of ureter (592.1) (N20.1) Nephrolithiasis (592.0) (N20.0) Allergies and Adverse Reactions No Known Drug Allergies (Allergy) Medications metFORMIN HCl - 1000 MG Oral Tablet Refills: 0 Procedures History of Back Surgery Status: Complete d History of Appendectomy Status: Complete d History of Renal Lithotripsy Status: Com pleted History of Cystoscopy With Insertion Of Ureteral Stent Status: Completed History of Cystoscopy With Ureteroscopy With Lithotripsy Status: Completed Immunizations Immunizations not documented Family History natural son Family history of Diabetes Mellitus (V18.0) Status: Active Unknown Family Member Family history of Diabetes Mellitus (V18.0) Status: Active Comments: Family History Mother Family history of kidney stones (V18.69) (Z84.1) Status: Act miki Sister Family history of kidney stones (V18.69) (Z84.1) Status: Act miki Social History - Smoking Status Ex-smoker Never smoked tobacco Plan of Treatment Planned Observations Planned Goals not documented Results No Known Results Results not documented Encounters Appointment; Nurse Eloy 28-Oct-2018 11:00 Encounter Diagnosis: Problem not documented
--- OUTSIDE RECORDS SUMMARY | 2020-08-05 18:21 | External Medical Summary | Continuity of Care Document ---
:1980 Author Name Alex Santana Address Unavailable Unavailable , Care Team Providers Name Role Phone Jayesh Santana Unavailable [email or web address] LOVE Unavailable Unavailable Unavailable Unavailable Unavailable Problems Nephrolithiasis (592.0) (N20.0) Diabetes mellitus (250.00) (E11.9) Calculus of ureter (592.1) (N20.1) Allergies and Adverse Reactions No Known Drug [...]
[2020-08-05] MEDS ORDERED: diphenhydrAMINE 50 MG/ML VIAL IV STA (18:48)
[2020-08-05] MEDS ORDERED: PROCHLORPERAZINE 2 ML IV ONE (18:48)
[2020-08-05] MEDS ORDERED: FAMOTIDINE 20MG IV PUSH 20 MG/5 ML SYR IV STA (18:48)
[2020-08-05] MEDS ORDERED: SODIUM CHLORIDE 0.9% 1000ML 1,000 ML IV ONE ×2 (18:49→20:52)
--- NOTE | 2020-08-05 19:35 | XRay Report ---
SINGLE VIEW CHEST CLINICAL HISTORY: Atypical chest pain. FINDINGS: An AP, portable, upright chest radiograph is compared to study dated 12/25/2018. The cardiome diastinal silhouette is unremarkable. The lungs and pleural spaces are clear. No pneumothorax is seen . The bony thorax is grossly intact. IMPRESSION: No active disease in the chest. ACT 112: Negative or not required by law. Electronically signed by: Rob Helms M.D. 08/05/2020 7:34 PM
--- NOTE | 2020-08-05 19:45 | Emergency Department Note ---
Impression & Plan Gastritis, Intractable nausea and vomiting, Type 2 diabetes mellitus ED Provider Note NAME: VALENTE QUIÑONES AGE: 39 SEX: M ARRIVES VIA: Walk-In INFORMANT: Patient, ED PROVIDER(S): Luis Miguel Nicolas MD CHIEF COMPLAINT: Vomiting. PLAN: Disposition: Admit MEDICAL DECISION MAKING: The patient is a pleasant 39-year-old gentleman with a past medical history of CAD with history of PCI, NIDDM 2 who presents emergency department with acute onset nausea and vomiting that woke him from sleep last night in the setting of going to a yesterday. He denies eating any foods that may have not settled well. He is unaware of any other guests having similar symptoms. He denies any known contacts with individuals diagnosed with COVID-19. Prior to today he has been feeling healthy. He does report using medical marijuana daily and denies any history of cyclic vomiting. Denies cough, congestion, fever, chest pain, shortness of breath, diarrhea, urinary sx. On arrival the patient is uncomfortable no acute distress, afebrile stable vital signs. He appears clinically dry. Abdomen is benign. During his observation evaluation in the emergency department he did have an episode of blood-tinged emesis that was Gastroccult positive. Reports this was the only time this occurred and otherwise his emesis has been nonbloody nonblack. EKG without overt acute ischemia. Chest x-ray negative for acute cardiopulmonary process. There is no free air. WBC 13.3, nonspecific. H/H and platelets within normal limits. Chemistry without acidosis. Electrolytes and LFTs unremarkable. Troponin negative/undetectable. Lipase within normal limits. On reevaluation the patient did report feeling somewhat improved though still with residual nausea and now with development of hiccups. Suspect the patient's symptoms are related to gastritis. Given still somewhat symptomatic in the setting of having blood-tinged emesis x1 reasonable to admit the patient for further management. Of note, the patient is requesting admission to [facility] hospitalist service with Dr. Foster, [facility] hospitalist. He will evaluate the patient for admission. Triage Nursing notes reviewed and agree them. Prior medical records reviewed Vital Signs: reviewed and remarkable for no significant abnormalities Differential diagnosis: Gastroenteritis, food borne illness, infections, appendicitis, diverticulitis, inflammatory bowel disease, obstruction, GI bleed, biliary pathology, volvulus, as well as other pathologies. ER treatment provided: See below. Diagnostics interpreted by me: ECG: Sinus rhythm with marked sinus arrhythmia, 85 bpm, normal axis, no ectopy, no overt ST elevation or depression, incomplete right bundle branch block, QTC 423, QRS 102. Cardiac Monitoring: An order for continuous cardiac monitoring was placed and demonstrated sinus rhythm, 85 bpm, no ectopy. Laboratory studies: See below Imaging studies: SINGLE VIEW CHEST CLINICAL HISTORY: Atypical chest pain. FINDINGS: An AP, portable, upright chest radiograph is compared to study dated 12/25/2018. The cardiomediastinal silhouette is unremarkable. The lungs and pleural spaces are clear. No pneumothorax is seen. The bony thorax is grossly intact. IMPRESSION: No active disease in the chest. Consultation(s): Dr. Foster, [facility] hospitalist, who will evaluate the patient for admission. HPI: The patient is a pleasant 39-year-old gentleman with a past medical history of CAD with history of PCI, NIDDM 2 who presents emergency department with acute onset nausea and vomiting that woke him from sleep last night in the setting of going to a yesterday. He denies eating any foods that may have not settled well. He is unaware of any other guests having similar symptoms. He denies any known contacts with individuals diagnosed with COVID-19. Prior to today he has been feeling healthy. He does report using medical marijuana daily and denies any history of cyclic vomiting. Denies cough, congestion, fever, chest pain, shortness of breath, diarrhea, urinary sx. ROS: See above HPI for pertinent positives & negatives. A total of 10 systems reviewed and were otherwise negative. PAST MEDICAL HISTORY:See Below PAST SURGICAL HISTORY:See Below FAMILY HISTORY:See Below SOCIAL HISTORY:See Below HOME MEDICATIONS:See Below ALLERGIES:See Below VITALS:See Below PHYSICAL EXAMINATION: GENERAL: Awake, alert, fatigued-appearing, in no distress HENT: Normocephalic, atraumatic. Oropharynx with dry mucous membranes and otherwise unremarkable. EYES: Normal conjunctiva. Sclera non-icteric. NECK: Supple. No nuchal rigidity. FROM. No JVD. RESPIRATORY: Clear to auscultation. CARDIAC: Regular rate, normal rhythm. Extremities warm and well perfused. Pulses equal. ABDOMEN: Soft, non-distended. No tenderness to palpation. No rebound or guarding. No masses. RECTAL: Deferred. MUSCULOSKELETAL: Chest examination reveals no tenderness. The back is symmetrical on inspection without obvious abnormality. There is no CVA tenderness to palpation. No joint edema. LOWER EXTREMITIES: Calves are equal size bilaterally and non-tender. No edema. No discoloration. NEURO: Normal sensorium. No sensory or motor deficits noted. SKIN: No rash or jaundice noted. Luis Miguel Nicolas MD Past Med/Surg History Medical History Diabetes Diabetes mellitus type 2 in nonobese Kidney stones NSTEMI (non-ST elevated myocardial infarction) Obesity (BMI 30.0-34.9) Ureterolithiasis Surgical History H/O heart artery stent H/O lithotripsy History of appendectomy Hx of decompressive lumbar laminectomy Previous back surgery Social History Smoking Status: Former smoker Smoking End Date: 20 years ago; Second Hand Exposure: Yes; Hx Alcohol Use: Yes Alcohol type: beer Hx Substance Use: Yes Last Used Substance: Unknown Preferred Language: Vietnamese Communication Ability: Effective Vault Attendant Required: No Beliefs That Will Affect Care: None Current Living Situation: Significant Other Other Information That Helps Us Care for You: No Feels Safe at Home: Yes Safety Concerns: Feels Safe At This Time Assistive Devices: Glasses Allergies Allergies Allergy/AdvReac Type Severity Reaction Status Date / Time No Known Allergies Allergy Verified 08/05/20 21:04 Home Meds Home Medications Medication Instructions Recorded Confirmed metformin 1,000 mg PO BIDM 10/22/18 08/05/20 clopidogrel 75 mg PO QAM 12/25/18 08/05/20 empagliflozin [Jardiance] 10 mg PO QAM 12/25/18 08/05/20 metoprolol tartrate 25 mg PO BID 12/25/18 08/05/20 rosuvastatin 40 mg PO QAM 12/25/18 08/05/20 lisinopril 2.5 mg PO QAM 08/05/20 08/05/20 nitroglycerin [Nitrostat] 0.4 mg SUBLINGUAL DIRECTED PRN 08/05/20 08/05/20 Results & Data (ED) Vital Signs Vital Signs - 24 hr 08/05/20 18:30 08/05/20 18:48 08/05/20 21:00 Temperature 37.4 C Temperature Source Oral Oral Pulse Rate 81 Pulse Rate [Apical] 106 H Respiratory Rate 20 18 Respiratory Effort / Characteristics Non-Labored Spontaneous Respiratory Depth Normal Blood Pressure 162/91 H Blood Pressure [Right Arm] 161/87 H Blood Pressure Mean 114 Blood Pressure Mean [Right Arm] 111 Blood Pressure Position Sitting Pulse Oximetry 100 Oxygen Delivery Method Room Air Sepsis Recent Fever Within 48 Hours No Sepsis New/Unexplained Change in Mental Status No Sepsis Action Taken by Nursing No Action Required Laboratory Data Attestation: I reviewed the patient's lab results. Result diagrams: 08/05/20 19:08/05/20 19: Lab Results 08/05/20 08/05/20 08/05/20 Range/Units 19:15 19:20 19:20 WBC 13.31 H (4.8-10.8) K/uL RBC 5.47 (4.7-6.1) M/uL Hgb 17.1 (14.0-18.0) g/dL Hct 48.0 (42-52) % MCV 87.8 (80-100) fL MCH 31.3 (25-34) pg MCHC 35.6 (32-36) g/dL RDW Std Deviation 40.3 (36.4-46.3) fL RDW Coeff of Kimmie 12.6 (11.5-14.5) % Plt Count 279 (130-400) K/uL MPV 9.5 (7.4-10.4) fL Immature Gran % (Auto) 0.3 % Neut % (Auto) 87.5 % Lymph % (Auto) 8.6 % [place] % (Auto) 3.5 % Eos % (Auto) 0.0 % Baso % (Auto) 0.1 % Neut # (Auto) 11.65 H (1.4-6.5) K/uL Lymph # (Auto) 1.15 L (1.2-3.4) K/uL [place] # (Auto) 0.46 (0.11-0.59) K/uL Eos # (Auto) 0.00 (0-0.5) K/uL Baso # (Auto) 0.01 (0-0.2) K/uL Immature Gran # (Auto) 0.04 H (0.00-0.02) K/uL PT (9.0-12.0) Seconds INR (0.9-1.1) APTT (21.0-31.0) Seconds PTT Ratio Sodium (136-145) mmol/L Potassium (3.5-5.1) mmol/L Chloride (98-107) mmol/L Carbon Dioxide (21-32) mmol/L Anion Gap (3-11) BUN (7-18) mg/dl Creatinine (0.6-1.4) mg/dl Est Cr Clr Drug Dosing ml/min Est GFR ( Amer) Est GFR (Non-Af Amer) BUN/Creatinine Ratio (10-20) Glucose (70-99) mg/dl Osmolality 302 H (280-300) mOsm/kg Calcium (8.5-10.1) mg/dl Phosphorus (2.5-4.9) mg/dl Magnesium (1.8-2.4) mg/dl Total Bilirubin (0.2-1) mg/dl Direct Bilirubin (0-0.2) mg/dl AST (15-37) U/L ALT (12-78) U/L Alkaline Phosphatase (45-117) U/L Troponin I (0-0.045) ng/ml Total Protein (6.4-8.2) gm/dl Albumin (3.4-5.0) gm/dl Globulin (2.5-4.0) gm/dl Albumin/Globulin Ratio (0.9-2) Lipase (73-393) U/L Gastric Fluid pH 2 Gastric Occult Blood Positive A (Negative) 08/05/20 08/05/20 Range/Units 19:20 19:20 WBC (4.8-10.8) K/uL RBC (4.7-6.1) M/uL Hgb (14.0-18.0) g/dL Hct (42-52) % MCV (80-100) fL MCH (25-34) pg MCHC (32-36) g/dL RDW Std Deviation (36.4-46.3) fL RDW Coeff of Kimmie (11.5-14.5) % Plt Count (130-400) K/uL MPV (7.4-10.4) fL Immature Gran % (Auto) % Neut % (Auto) % Lymph % (Auto) % [place] % (Auto) % Eos % (Auto) % Baso % (Auto) % Neut # (Auto) (1.4-6.5) K/uL Lymph # (Auto) (1.2-3.4) K/uL [place] # (Auto) (0.11-0.59) K/uL Eos # (Auto) (0-0.5) K/uL Baso # (Auto) (0-0.2) K/uL Immature Gran # (Auto) (0.00-0.02) K/uL PT 10.4 (9.0-12.0) Seconds INR 1.0 (0.9-1.1) APTT 24.5 (21.0-31.0) Seconds PTT Ratio 0.9 Sodium 138 (136-145) mmol/L Potassium 3.9 (3.5-5.1) mmol/L Chloride 105 (98-107) mmol/L Carbon Dioxide 21 (21-32) mmol/L Anion Gap 12.0 H (3-11) BUN 17 (7-18) mg/dl Creatinine 1.05 (0.6-1.4) mg/dl Est Cr Clr Drug Dosing 121.5 ml/min Est GFR ( Amer) 102.4 Est GFR (Non-Af Amer) 88.4 BUN/Creatinine Ratio 15.7 (10-20) Glucose 183 H (70-99) mg/dl Osmolality (280-300) mOsm/kg Calcium 10.1 (8.5-10.1) mg/dl Phosphorus 3.5 (2.5-4.9) mg/dl Magnesium 2.0 (1.8-2.4) mg/dl Total Bilirubin 0.6 (0.2-1) mg/dl Direct Bilirubin 0.1 (0-0.2) mg/dl AST 16 (15-37) U/L ALT 44 (12-78) U/L Alkaline Phosphatase 60 (45-117) U/L Troponin I < 0.015 (0-0.045) ng/ml Total Protein 8.4 H (6.4-8.2) gm/dl Albumin 4.5 (3.4-5.0) gm/dl Globulin 3.9 (2.5-4.0) gm/dl Albumin/Globulin Ratio 1.2 (0.9-2) Lipase 133 (73-393) U/L Gastric Fluid pH Gastric Occult Blood (Negative) Administered Medications Discontinued Medications Diphenhydramine HCl (Diphenhydramine Hcl 50 Mg/Ml Vial) 25 mg IV NOW STA Stop: 08/05/20 18:49 Last Admin: 08/05/20 19:21 Dose: 25 mg Documented by: [id number] Famotidine (Pepcid 20mg Iv Push) 20 mg in 5 mls @ 2.5 mls/min IV NOW STA Stop: 08/05/20 18:49 Last Admin: 08/05/20 19:21 Dose: 2.5 mls/min Documented by: [id number] Prochlorperazine (Compazine) 2 mls @ 1 mls/min IV ONE ONE Stop: 08/05/20 18:49 Last Admin: 08/05/20 19:21 Dose: 1 mls/min Documented by: [id number] Sodium Chloride (Nss 1000ml) 1,000 mls @ 999 mls/hr IV .Q1H1M ONE Stop: 08/05/20 19:49 Last Infusion: 08/05/20 20:54 Dose: 0 mls/hr Documented by: [id number] Admin: 08/05/20 19:22 Dose: 999 mls/hr Documented by: [id number] Pantoprazole Sodium 40 mg/ (Syringe) 10 mls @ 5 mls/min IV NOW ONE Stop: 08/05/20 20:09 Last Admin: 08/05/20 20:48 Dose: 5 mls/min Documented by: [id number] Sodium Chloride (Nss 1000ml) 1,000 mls @ 999 mls/hr IV .Q1H1M ONE Stop: 08/05/20 21:52 Last Infusion: 08/05/20 22:13 Dose: 0 mls/hr Documented by: [id number] Admin: 08/05/20 21:12 Dose: 999 mls/hr Documented by: [id number] Metoclopramide HCl (Metoclopramide Hcl Inj 5 Mg/Ml 2 Ml Vial) 10 mg IV NOW STA Stop: 08/05/20 20:53 Last Admin: 08/05/20 21:12 Dose: 10 mg Documented by: [id number] Discharge Plan Visit Data Chief Complaint: Vomiting Stated Complaint: CHILLS, VOMITING, FEVER ED Provider: Luis Miguel Nicolas Discharge Problem: Gastritis, Intractable nausea and vomiting, Type 2 diabetes mellitus Discharge Instructions Interventions: ED Discharge Assessment Last Done: 08/06/20 00:19 Discharge Problem: Gastritis Qualifiers: Gastritis type: unspecified gastritis Chronicity: acute Gastritis bleeding: with bleeding Qualified Code(s): K29.01 - Acute gastritis with bleeding
[2020-08-05 19:50] LABS: Gastric Occult Blood Positive (Negative); pH Gastric Fluid 2
[2020-08-05 19:58] LABS: Basophils # (auto) 0.01 K/uL (0-0.2); Basophils % (auto) 0.1 %; Hemoglobin 17.1 g/dL (14.0-18.0); Immature Granulocytes # (auto) 0.04 K/uL (0.00-0.02); Immature Granulocytes % (auto) 0.3 %; Lymphocytes # (auto) 1.15 K/uL (1.2-3.4); Lymphocytes % (auto) 8.6 %; Mean Corpuscular Hemoglobin 31.3 pg (25-34); Mean Corpuscular Hgb Conc 35.6 g/dL (32-36); Mean Corpuscular Volume 87.8 fL (80-100); Mean Platelet Volume 9.5 fL (7.4-10.4); Monocytes # (auto) 0.46 K/uL (0.11-0.59); Monocytes % (auto) 3.5 %; Neutrophils # (auto) 11.65 K/uL (1.4-6.5); Neutrophils % (auto) 87.5 %; Platelet Count 279 K/uL (130-400); RDW Coefficient of Variation 12.6 % (11.5-14.5); RDW Standard Deviation 40.3 fL (36.4-46.3); Red Blood Count 5.47 M/uL (4.7-6.1); White Blood Count 13.31 K/uL (4.8-10.8)
[2020-08-05] MEDS ORDERED: PANTOprazole 40 MG in SYRINGE 0 ML IV ONE (20:08)
[2020-08-05 20:14] LABS: Partial Thromboplastin Ratio 0.9; Partial Thromboplastin Time 24.5 Seconds (21.0-31.0); Prothrombin Time 10.4 Seconds (9.0-12.0)
[2020-08-05 20:16] LABS: Alanine Aminotransferase 44 U/L (12-78); Albumin Level 4.5 gm/dl (3.4-5.0); Aspartate Aminotransferase 16 U/L (15-37); BUN Creatinine Ratio 15.7 (10-20); Bilirubin Direct 0.1 mg/dl (0-0.2); Blood Urea Nitrogen 17 mg/dl (7-18); Calcium 10.1 mg/dl (8.5-10.1); Carbon Dioxide 21 mmol/L (21-32); Chloride 105 mmol/L (98-107); Creatinine Clr Calc Pharmacy 121.5 ml/min; Est GFR (African American) 102.4; Est GFR (Non-African American) 88.4; Glucose 183 mg/dl (70-99); Lipase 133 U/L (73-393); Potassium 3.9 mmol/L (3.5-5.1); Sodium 138 mmol/L (136-145)
[2020-08-05 20:19] LABS: Albumin Globulin Ratio 1.2 (0.9-2); Alkaline Phosphatase 60 U/L (45-117); Bilirubin,Total 0.6 mg/dl (0.2-1); Globulin 3.9 gm/dl (2.5-4.0); Phosphorus 3.5 mg/dl (2.5-4.9); Total Protein 8.4 gm/dl (6.4-8.2); Troponin I < 0.015 ng/ml (0-0.045)
[2020-08-05] MEDS ORDERED: METOCLOPRAMIDE HCL INJ 5 MG/ML 2 ML VIAL IV STA (20:52)
[2020-08-05] MEDS ORDERED: diphenhydrAMINE 50 MG/ML VIAL IV PRN (22:34)
[2020-08-05] MEDS ORDERED: PROCHLORPERAZINE 10 MG in SYRINGE 8 ML IV PRN (22:34)
--- NOTE | 2020-08-05 22:36 | History & Physical Report ---
Date of Service August 05, 2020 Assessment & Plan (1) Hematemesis: Hematemesis/intractable nausea and vomiting- Patient with history of unexplained episodes of severe nausea and vomiting. Have to be concerned regarding possibility of Dang-Montes tear. NPO except essential medications Protonix 40 mg IV every 12 hours H&H every 6 hours Zofran 4 mg IV every 6 hours as needed Compazine 10 mg IV every 6 hours as needed consult gastroenterology May be an element of cannabinoid hyperemesis syndrome NSS + KCl 20 mEq at high 25 mils per hour Consult gastroenterology Present on Admission?: Yes (2) Intractable nausea and vomiting: See above Present on Admission?: Yes (3) Type 2 diabetes mellitus: Hold metformin and empagliflozin. Place on Accu-Cheks before meals and at bedtime with NovoLog coverage per scale Present on Admission?: Yes (4) Dyslipidemia: Hold rosuvastatin 40 mg every morning Present on Admission?: Yes (5) CAD (coronary artery disease), qawalangin coronary artery: CAD/history non-STEMI/history of stents x3, in mid RCA and mid circumflex lesion- Continue metoprolol tartrate 25 mg p.o. twice daily For now hold clopidogrel 75 mg every morning and lisinopril 2.5 mg every morning, until GI assessed Present on Admission?: Yes (6) NSTEMI (non-ST elevated myocardial infarction): See above Present on Admission?: Yes (7) H/O heart artery stent: See above Present on Admission?: Yes (8) Hypertension: See above Present on Admission?: Yes (9) Nicotine abuse: Hold on NicoDerm patch for now Present on Admission?: Yes History of Present Illness Chief Complaint: Patient presents to the emergency department with acute onset of nausea and vomiting, that awoke him from sleep, and while in the emergency department brought up bright red blood with emesis. Primary Care Provider: Markel Brewster MD The patient is a 39-year-old male with a past medical history including diabetes mellitus type 2, dyslipidemia, nicotine abuse, elevated troponin, previous history of obesity with BMI 30.0-34.9, history of lithotripsy, history of decompressive lumbar laminectomy, history of non-STEMI, and history of episodic severe vomiting. He was recently at a of a close family member, and this was very stressful. He denies any COVID-19 exposures. He does smoke marijuana daily. Family members do note that he periodically has uncontrolled vomiting, which is very forceful. In the emergency department, he was Gastroccult positive. He received: Famotidine 20 mg IV Compazine 10 mg IV, Benadryl 25 mg IV, Protonix 40 mg IV and Reglan 10 mg IV, with improvement in symptoms. EKG showed right bundle branch block with no acute ST-T changes. Chest x-ray was negative. Allergies Allergy/AdvReac Type Severity Reaction Status Date / Time No Known Allergies Allergy Verified 08/05/20 21:04 Home Medications Home Medications Medication Instructions Recorded Confirmed Type metformin 1,000 mg PO BIDM 10/22/18 08/05/20 History clopidogrel 75 mg PO QAM 12/25/18 08/05/20 History empagliflozin [Jardiance] 10 mg PO QAM 12/25/18 08/05/20 History metoprolol tartrate 25 mg PO BID 12/25/18 08/05/20 History rosuvastatin 40 mg PO QAM 12/25/18 08/05/20 History lisinopril 2.5 mg PO QAM 08/05/20 08/05/20 History nitroglycerin [Nitrostat] 0.4 mg SUBLINGUAL DIRECTED PRN 08/05/20 08/05/20 History Past Med/Surg History Medical History Diabetes Diabetes mellitus type 2 in nonobese Kidney stones NSTEMI (non-ST elevated myocardial infarction) Obesity (BMI 30.0-34.9) Ureterolithiasis Surgical History H/O heart artery stent H/O lithotripsy History of appendectomy Hx of decompressive lumbar laminectomy Previous back surgery Social History Smoking Status: Former smoker Smoking End Date: 20 years ago; Second Hand Exposure: Yes; Hx Alcohol Use: Yes Alcohol type: beer Hx Substance Use: Yes Last Used Substance: Unknown Preferred Language: Macanese Communication Ability: Effective Refractory Worker Required: No Beliefs That Will Affect Care: None Current Living Situation: Significant Other Other Information That Helps Us Care for You: No Feels Safe at Home: Yes Safety Concerns: Feels Safe At This Time Assistive Devices: None Review of Systems Review of Systems: The patient denies chest pain, palpitations, shortness of breath, dyspnea on exertion, lower extremity swelling, fevers, chills, sweats, diarrhea , constipation, pelvic pain, blood in urine or stool, dysuria, urinary frequency or urgency, memory loss, loss of consciousness, rash, abnormal bruising or bleeding, imbalance, focal weakness, numbness or tingling in arms or legs, generalized arthralgias or myalgias, back or neck pain, or night sweats. The review of systems is otherwise negative other than for that already noted above, and at least 10 systems have been reviewed. Physical Exam Physical Exam: The patient is awake, alert and oriented 3, mildly lethargic from treatment medications, well developed and well nourished, normocephalic and atraumatic, lying in bed and in no acute distress. HEENT--PERRL, EOMI, mucous membranes and oropharynx dry. Neck--supple. No JVD. No bruits. Thyroid normal, trachea midline, no adenopathy. Heart--normal S1 and S2. No murmurs, rubs or gallops. Lungs--clear bilaterally, no respiratory distress, no accessory muscle use. Abdomen--normal bowel sounds and soft. Nontender. Nondistended, no hernias or masses, no organomegaly. Extremities--no cyanosis or clubbing. No edema. Dermatologic--normal skin turgor, normal color, no abnormal lymph nodes, no rash. Neurologic--cranial nerves II through XII grossly intact. Rheumatologic--normal range of motion. Psychiatric--normal affect. Results & Data Results & Data ([facility]) Vital Signs (Past 12 Hours) Vital Signs Temp Pulse Pulse Resp BP BP Pulse Ox 08/05/20 21:00 106 H 18 161/87 H 08/05/20 18:30 99.3 F 81 20 162/91 H 100 Laboratory Results Laboratory Results WBC 13.31 K/uL (4.8-10.8) H 08/05/20 19:20 RBC 5.47 M/uL (4.7-6.1) 08/05/20 19:20 Hgb 17.1 g/dL (14.0-18.0) 08/05/20 19:20 Hct 48.0 % (42-52) 08/05/20 19:20 MCV 87.8 fL (80-100) 08/05/20 19: MCH 31.3 pg (25-34) 08/05/20: MCHC 35.6 g/dL (32-36) 08/05/20:20 RDW Std Deviation 40.3 fL (36.4-46.3) 08/05/20: RDW Coeff of Kimmie 12.6 % (11.5-14.5) 08/05/20: Plt Count 279 K/uL (130-400) 08/05/20: MPV 9.5 fL (7.4-10.4) 08/05/20: Immature Gran % (Auto) 0.3 % 08/05/20:20 Neut % (Auto) 87.5 % 08/05/20 19:20 Lymph % (Auto) 8.6 % 08/05/20: [place] % (Auto) 3.5 % 08/05/20:20 Eos % (Auto) 0.0 % 08/05/20:20 Baso % (Auto) 0.1 % 08/05/20:20 Neut # (Auto) 11.65 K/uL (1.4-6.5) H 08/05/20:20 Lymph # (Auto) 1.15 K/uL (1.2-3.4) L 08/05/20:20 [place] # (Auto) 0.46 K/uL (0.11-0.59) 08/05/20 19:20 Eos # (Auto) 0.00 K/uL (0-0.5) 08/05/20 19:20 Baso # (Auto) 0.01 K/uL (0-0.2) 08/05/20: Immature Gran # (Auto) 0.04 K/uL (0.00-0.02) H 08/05/20 19:20 PT 10.4 Seconds (9.0-12.0) 08/05/20 19:20 INR 1.0 (0.9-1.1) 08/05/20 19:20 APTT 24.5 Seconds (21.0-31.0) 08/05/20 19:20 PTT Ratio 0.9 08/05/20 19:20 Sodium 138 mmol/L (136-145) 08/05/20 19:20 Potassium 3.9 mmol/L (3.5-5.1) 08/05/20 19:20 Chloride 105 mmol/L (98-107) 08/05/20 19:20 Carbon Dioxide 21 mmol/L (21-32) 08/05/20 19:20 Anion Gap 12.0 (3-11) H 08/05/20 19:20 BUN 17 mg/dl (7-18) 08/05/20 19:20 Creatinine 1.05 mg/dl (0.6-1.4) 08/05/20:20 Est Cr Clr Drug Dosing 121.5 ml/min 08/05/20 19:20 Est GFR ( Amer) 102.4 08/05/20 19:20 Est GFR (Non-Af Amer) 88.4 08/05/20 19:20 BUN/Creatinine Ratio 15.7 (-20) 08/05/20 19:20 Glucose 183 mg/dl (70-99) H 08/05/20 19:20 POC Glucose 168 mg/dl (70-99) H 08/06/20 00:43 Osmolality 302 mOsm/kg (280-300) H 08/05/20 19:20 Calcium 10.1 mg/dl (8.5-10.1) 08/05/20:20 Phosphorus 3.5 mg/dl (2.5-4.9) 08/05/20:20 Magnesium 2.0 mg/dl (1.8-2.4) 08/05/20 19:20 Total Bilirubin 0.6 mg/dl (0.2-1) 08/05/20:20 Direct Bilirubin 0.1 mg/dl (0-0.2) 08/05/20 19:20 AST 16 U/L (15-37) 08/05/20 19:20 ALT 44 U/L (12-78) 08/05/20 19:20 Alkaline Phosphatase 60 U/L (45-117) 08/05/20 19:20 Troponin I < 0.015 ng/ml (0-0.045) 08/05/20 19:20 Total Protein 8.4 gm/dl (6.4-8.2) H 08/05/20 19:20 Albumin 4.5 gm/dl (3.4-5.0) 08/05/20 19:20 Globulin 3.9 gm/dl (2.5-4.0) 08/05/20 19:20 Albumin/Globulin Ratio 1.2 (0.9-2) 08/05/20 19:20 Lipase 133 U/L (73-393) 08/05/20 19:20 Urine Color Yellow 08/06/20 00:00 Urine Appearance Clear (Clear) 08/06/20 00:00 Urine pH 5.0 (4.5-7.5) 08/06/20 00:00 Ur Specific [place] 1.038 (1.000-1.030) H 08/06/20 00:00 Urine Protein Negative (Negative) 08/06/20 00:00 Urine Glucose (UA) 3+ (Negative) H 08/06/20 00:00 Urine Ketones 4+ (Negative) H 08/06/20 00:00 Urine Blood Negative (Negative) 08/06/20 00:00 Urine Nitrite Negative (Negative) 08/06/20 00:00 Urine Bilirubin Negative (Negative) 08/06/20 00:00 Urine Urobilinogen Negative (Negative) 08/06/20 00:00 Ur Leukocyte Esterase Negative (Negative) 08/06/20 00:00 Gastric Fluid pH 2 08/05/20 19:15 Gastric Occult Blood Positive (Negative) A 08/05/20 19:15 Diagnostic Findings [place], [place] [phone] XRay Report Patient: VALENTE QUIÑONES CAdmit Date: 08/05/20 MR#: [id number]: [address] Acct ID:[id number]: [address] Date: 1980[facility] Zip: [place] [address] Age: 39Location: ED Sex: MRoom/Bed: Att Phy:Diagnosis: CHILLS, VOMITING, FEVER Clair Phy: Markel Brewster, MDService Date: 08/05/20 Fam Phy:Interpreting Phy: Rob Helms MD Admit Phy: Ordering Phy: Luis Miguel Nicolas M.D. cc: ~ SINGLE VIEW CHEST CLINICAL HISTORY: Atypical chest pain. FINDINGS: An AP, portable, upright chest radiograph is compared to study dated 12/25/2018. The cardiomediastinal silhouette is unremarkable. The lungs and pleural spaces are clear. No pneumothorax is seen. The bony thorax is grossly intact. IMPRESSION: No active disease in the chest. ACT 112: Negative or not required by law. Electronically signed by: Rob Helms M.D. 08/05/2020 7:34 PM Dictated: 08/05/201932 Transcribed: 08/05/201932 Code Status & VTE Plan Code Status Full code VTE Prophylaxis Plan VTE Prophylaxis will be ordered: Yes PG Care Time/CCT Total # of Minutes Spent Total Time Spent with Patient: Total time spent is greater than 50% in coordination of care (as documented) at patient's floor/unit and/or counseling patient: Coding Level of Care Code 15925 Initial Inpt Care Lvl 3 Diagnoses Hematemesis K92.0 Intractable nausea and vomiting R11.2 Type 2 diabetes mellitus E11.9 Dyslipidemia E78.5 CAD (coronary artery disease), qawalangin coronary artery I25.10 NSTEMI (non-ST elevated myocardial infarction) I21.4 H/O heart artery stent Z95.5 Hypertension I10 Nicotine abuse Z72.0
[2020-08-06 00:26] LABS: Appearance Urine Clear (Clear); Bilirubin Urine Negative (Negative); Blood Urine Negative (Negative); Color Urine Yellow; Glucose Urine UA 3+ (Negative); Ketones Urine 4+ (Negative); Leukocyte Esterase Urine Negative (Negative); Nitrite Urine Negative (Negative); Protein Urine Negative (Negative); Specific Gravity Urine 1.038 (1.000-1.030); Urobilinogen Urine Negative (Negative)
[2020-08-06] MEDS ORDERED: ACETAMINOPHEN 325 MG TAB PO PRN (00:34)
[2020-08-06] MEDS ORDERED: GLUCAGON FOR INJ 1 MG VIAL SQ PRN (00:34)
[2020-08-06] MEDS ORDERED: CARBOHYDRATES FOR HYPOGLYCEMIA PO PRN (00:34)
[2020-08-06] MEDS ORDERED: ONDANSETRON INJ 2 MG/ML 2 ML VIAL IV PRN (00:34)
[2020-08-06] MEDS ORDERED: GLUCOSE 10 TABS/TUBE PO PRN (00:34)
[2020-08-06] MEDS ORDERED: DEXTROSE 50% 50 ML SYRINGE IV PRN (00:34)
[2020-08-06] MEDS ORDERED: GLUCOSE 40% GEL 15 GM TUBE PO PRN (00:34)
[2020-08-06] MEDS ORDERED: MELATONIN 3 MG TAB PO PRN (00:48)
[2020-08-06] MEDS: NSS + 20MEQ KCL 20 MEQ/1,000 ML BAG IV SCH ×2 (01:06→09:32)
[2020-08-06 08:01] LABS: Basophils # (auto) 0.01 K/uL (0-0.2); Basophils % (auto) 0.1 %; Eosinophils # (auto) 0.02 K/uL (0-0.5); Eosinophils % (auto) 0.1 %; Hematocrit (blood only) 41.8 % (42-52); Hemoglobin 14.3 g/dL (14.0-18.0); Immature Granulocytes # (auto) 0.04 K/uL (0.00-0.02); Immature Granulocytes % (auto) 0.3 %; Lymphocytes # (auto) 1.99 K/uL (1.2-3.4); Lymphocytes % (auto) 14.8 %; Mean Corpuscular Hemoglobin 30.8 pg (25-34); Mean Corpuscular Hgb Conc 34.2 g/dL (32-36); Mean Corpuscular Volume 89.9 fL (80-100); Mean Platelet Volume 9.5 fL (7.4-10.4); Monocytes # (auto) 1.16 K/uL (0.11-0.59); Monocytes % (auto) 8.6 %; Neutrophils # (auto) 10.26 K/uL (1.4-6.5); Neutrophils % (auto) 76.1 %; Platelet Count 261 K/uL (130-400); RDW Coefficient of Variation 12.9 % (11.5-14.5); RDW Standard Deviation 42.3 fL (36.4-46.3); Red Blood Count 4.65 M/uL (4.7-6.1); White Blood Count 13.48 K/uL (4.8-10.8)
[2020-08-06 08:08] LABS: Estimated Average Glucose 243 mg/dl; Hemoglobin A1C 10.1 % (4.5-5.6)
[2020-08-06 08:16] LABS: Partial Thromboplastin Ratio 0.9; Partial Thromboplastin Time 25.8 Seconds (21.0-31.0)
[2020-08-06] MEDS: INSULIN ASPART 100 UNITS/ML 3 ML PEN SC SCH ×2 (08:21→12:43)
--- NOTE | 2020-08-06 08:32 | Hospitalist Progress Note ---
Date of Service August 06, 2020 Assessment & Plan (1) Hematemesis: 39 yo M with a hx CAD, HTN, DM2 admitted for multiple episodes hematemesis and concern for darius-marcelo tear. 1) Hematemesis - NPO - GI consult for scope to assess for tear/intervention - Protonix IV 40 mg BID - received compazine, pepcid, pantoprazole,reglan in ED. - zofran, compazine for nausea - Hg 17 on admission, down to 14. Daily CBC to follow. no emesis since ER. - VSS; BP on lower end at 106/50 with HR 92. - NS w/K @ 125 ml/hr 2) DM2 - SSI while NPO - holding oral glycemic medications 3) HTN - holding medications in setting of hypotension - normally on lisinopril 2.5 mg at home 4) CAD s/p stent placement - stented in oct 2018 with recs for DAPTx1 year - d/c plavix 5) Nicotine Abuse - nicotine (2) Hypertension: (3) CAD (coronary artery disease), [place] coronary artery: (4) Type 2 diabetes mellitus: (5) Dyslipidemia: (6) Nicotine abuse: Admission and Anticipated Discharge Date Admission Date: August 05, 2020 Subjective 39-year-old male with a past medical history of coronary artery disease, hypertension, history of coronary artery stenting, type 2 diabetes, dyslipidemia, nicotine abuse, obesity admitted for multiple episodes of emesis including 2 large volume episodes of hematemesis. Patient states that he recently lost his aunt and close family friend on Saturday of this week has had a difficult time going through the grieving process. Starting on around 2 in the morning he developed nausea that by Saturday evening had evolved into multiple episodes of emesis in the middle of the night. After having multiple episodes of bilious and remnant food emesis he had one large episode of emesis full of blood. This time his brought him to the emergency department where he had another large episode of emesis with blood she describes it as being approximately 250 cc of fluid. At this time the patient denies any nausea or stomach pain. Denies any chest pain or shortness of breath, lightheadedness. Review of Systems Constitutional: no fever, no chills, no body aches and no fatigue Respiratory: no cough and no dyspnea Cardiovascular: no chest pain, no dyspnea and no edema Gastrointestinal: no abdominal pain, no nausea, no vomiting, no constipation and no diarrhea/loose stools Physical Exam Constitutional: cooperative; no acute distress and not ill appearing Neck: normal visual inspection Respiratory: normal respiratory effort and able to speak in complete sentences; no respiratory distress, no labored breathing, no retractions, no cough and no audible wheezes Auscultation: lungs clear to auscultation bilaterally; no crackles, no rales, no rhonchi and no wheezes Cardiovascular: Rate/Rhythm: regular rate and regular rhythm Heart Sounds: normal S1 and normal S2; no gallop, no murmur and no cardiac rub Vessels: posterior tibial pulses present Extremities: no pedal edema and no edema Gastrointestinal (Abdomen): Inspection/Auscultation: abdomen normal to inspection and normal bowel sounds; abdomen not distended Percussion/Palpation: + abdomen tender (LLQ) and abdomen soft; no guarding, abdomen not rigid and no abdominal mass Psychiatric: Orientation: alert and oriented x 3 Apperance: + inappropriately groomed Eye Contact: + poor eye contact Affect: + depressed affect and + tearful affect Mood: + depressed mood Results & Data Results & Data ([facility]) Vital Signs (Past 12 Hours) Vital Signs Temp Pulse Pulse Pulse Resp BP BP 08/06/20 07:41 37.0 C 92 H 16 106/50 L 08/06/20 07:18 76 08/06/20 05:25 37.1 C 88 14 105/62 08/06/20 01:00 102 H 08/06/20 00:37 37.3 C 102 H 18 135/68 08/06/20 00:09 106 H 18 08/05/20 21:00 106 H 18 161/87 H Pulse Ox 08/06/20 07:41 93 08/06/20 07:18 08/06/20 05:25 96 08/06/20 01:00 08/06/20 00:37 96 08/06/20 00:09 95 08/05/20 21:00 Laboratory Results WBC 13.48 K/uL (4.8-10.8) H 08/06/20 07:15 RBC 4.65 M/uL (4.7-6.1) L 08/06/20 07:15 Hgb 14.3 g/dL (14.0-18.0) 08/06/20 07:15 Hct 41.8 % (42-52) L 08/06/20 07:15 MCV 89.9 fL (80-100) 08/06/20 07:15 MCH 30.8 pg (25-34) 08/06/20 07:15 MCHC 34.2 g/dL (32-36) 08/06/20 07:15 RDW Std Deviation 42.3 fL (36.4-46.3) 08/06/20 07:15 RDW Coeff of Kimmie 12.9 % (11.5-14.5) 08/06/20 07:15 Plt Count 261 K/uL (130-400) 08/06/20 07:15 MPV 9.5 fL (7.4-10.4) 08/06/20 07:15 Immature Gran % (Auto) 0.3 % 08/06/20 07:15 Neut % (Auto) 76.1 % 08/06/20 07:15 Lymph % (Auto) 14.8 % 08/06/20 07:15 [place] % (Auto) 8.6 % 08/06/20 07:15 Eos % (Auto) 0.1 % 08/06/20 07:15 Baso % (Auto) 0.1 % 08/06/20 07:15 Neut # (Auto) 10.26 K/uL (1.4-6.5) H 08/06/20 07:15 Lymph # (Auto) 1.99 K/uL (1.2-3.4) 08/06/20 07:15 [place] # (Auto) 1.16 K/uL (0.11-0.59) H 08/06/20 07:15 Eos # (Auto) 0.02 K/uL (0-0.5) 08/06/20 07:15 Baso # (Auto) 0.01 K/uL (0-0.2) 08/06/20 07:15 Immature Gran # (Auto) 0.04 K/uL (0.00-0.02) H 08/06/20 07:15 PT 11.0 Seconds (9.0-12.0) 08/06/20 07:15 INR 1.0 (0.9-1.1) 08/06/20 07:15 APTT 25.8 Seconds (21.0-31.0) 08/06/20 07:15 PTT Ratio 0.9 08/06/20 07:15 Sodium 138 mmol/L (136-145) 08/05/20 19:20 Potassium 3.9 mmol/L (3.5-5.1) 08/05/20 19:20 Chloride 105 mmol/L (98-107) 08/05/20 19:20 Carbon Dioxide 21 mmol/L (21-32) 08/05/20 19:20 Anion Gap 12.0 (3-11) H 08/05/20 19:20 BUN 17 mg/dl (7-18) 08/05/20 19:20 Creatinine 1.05 mg/dl (0.6-1.4) 08/05/20 19:20 Est Cr Clr Drug Dosing 121.5 ml/min 08/05/20 19:20 Est GFR ( Amer) 102.4 08/05/20 19:20 Est GFR (Non-Af Amer) 88.4 08/05/20 19:20 BUN/Creatinine Ratio 15.7 (10-20) 08/05/20 19:20 Glucose 183 mg/dl (70-99) H 08/05/20 19:20 POC Glucose 140 mg/dl (70-99) H 08/06/20 07:55 Estimat Average Glucose 243 mg/dl 08/06/20 07:15 Hemoglobin A1c 10.1 % (4.5-5.6) H 08/06/20 07:15 Osmolality 302 mOsm/kg (280-300) H 08/05/20 19:20 Calcium 10.1 mg/dl (8.5-10.1) 08/05/20 19:20 Phosphorus 3.5 mg/dl (2.5-4.9) 08/05/20 19:20 Magnesium 1.8 mg/dl (1.8-2.4) 08/06/20 07:15 Total Bilirubin 0.6 mg/dl (0.2-1) 08/05/20 19:20 Direct Bilirubin 0.1 mg/dl (0-0.2) 08/05/20 19:20 AST 16 U/L (15-37) 08/05/20 19:20 ALT 44 U/L (12-78) 08/05/20 19:20 Alkaline Phosphatase 60 U/L (45-117) 08/05/20 19:20 Troponin I < 0.015 ng/ml (0-0.045) 08/06/20 07:15 Total Protein 8.4 gm/dl (6.4-8.2) H 08/05/20 19:20 Albumin 4.5 gm/dl (3.4-5.0) 08/05/20 19:20 Globulin 3.9 gm/dl (2.5-4.0) 08/05/20 19:20 Albumin/Globulin Ratio 1.2 (0.9-2) 08/05/20 19:20 Lipase 133 U/L (73-393) 08/05/20 19:20 Urine Color Yellow 08/06/20 00:00 Urine Appearance Clear (Clear) 08/06/20 00:00 Urine pH 5.0 (4.5-7.5) 08/06/20 00:00 Ur Specific [place] 1.038 (1.000-1.030) H 08/06/20 00:00 Urine Protein Negative (Negative) 08/06/20 00:00 Urine Glucose (UA) 3+ (Negative) H 08/06/20 00:00 Urine Ketones 4+ (Negative) H 08/06/20 00:00 Urine Blood Negative (Negative) 08/06/20 00:00 Urine Nitrite Negative (Negative) 08/06/20 00:00 Urine Bilirubin Negative (Negative) 08/06/20 00:00 Urine Urobilinogen Negative (Negative) 08/06/20 00:00 Ur Leukocyte Esterase Negative (Negative) 08/06/20 00:00 Gastric Fluid pH 2 08/05/20 19:15 Gastric Occult Blood Positive (Negative) A 08/05/20:15
[2020-08-06 08:37] LABS: Magnesium 1.8 mg/dl (1.8-2.4); Troponin I < 0.015 ng/ml (0-0.045)
[2020-08-06] MEDS ORDERED: PANTOprazole 40 MG in SYRINGE 0 ML IV SCH (09:00)
--- NOTE | 2020-08-06 10:06 | Electrocardiogram Report ---
Test Reason : Blood Pressure : / mmHG Vent. Rate : 085 BPM Atrial Rate : 085 BPM P-R Int : 148 ms QRS Dur : 102 ms QT Int : 356 ms P-R-T Axes : 046 068 005 degrees QTc Int : 423 ms Sinus rhythm with marked sinus arrhythmia RSR' or QR pattern in V1 suggests right ventricular conduction delay Nonspecific T wave abnormality When compared with ECG of 25-DEC-2018 12:59, No significant change was found Confirmed by Trung Blandon ([id number]) on 08/06/2020 10:06:08 AM Referred By: REFERRED SELF Confirmed By:Trung Blandon
[2020-08-06] MEDS ORDERED: NICOTINE 7 MG/24 HR TDSY TD PRN (10:21)
--- NOTE | 2020-08-06 12:42 | Gastrointestinal Consultation ---
Date of Consultation August 06, 2020 Assessment & Plan (1) Hematemesis: Discussed case in detail with Resident, Dr. Shipley from Hospitalist team Recommend Pantoprazole 40 mg PO BID Recommend Carafate 1 g PO QID AC/HS x 10 days Recommend patient followup with Gastroenterology on Saturday if discharged at [facility] If he is discharged, and has any further episodes of Hematemesis, he should report back to the ER immediately. History of Present Illness Reason for Consultation: Hematemesis Attending Physician: Sid Dunne DO History of Present Illness 39 yo CM who presented to the ER last evening following multiple episodes of vomiting, followed by 2-3 episodes of hematemesis. He states that he was in the area and was visiting with family due to the passing of his Aunt. He states that he was very sad and anxious, and states that he can have episodes of wretching and dry-heaving when, "I get worked up." He states that often he does have heartburn preceding these symptoms, but does not take any medications for this. 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 He states that the last few times he threw up, he was noted to have, "a large amount of blood." He did have a witnessed episode of hematemesis, in the ER. He was admitted and placed on Pantoprazole 40 mg BID. He was noted to have a drop in his Hgb from 17.1 to 14.3 overnight. At the time I saw the patient, he was feeling much improved and was hemodynamically stable. He denies any lightheadedness, dizziness, nausea, further vomiting, further hematemesis, and has not had a BM since his arrival. He states that he is not having any abdominal pain, and denies any other complaints. He states that he would prefer to leave and followup with a crochet machine operator next week in [place], as his , who accompanies him, works at [facility]. He states that he has never been told he has liver disease, he denies any history of IV drug abuse, does not drink alcohol, and denies any other complaints. Allergies Allergy/AdvReac Type Severity Reaction Status Date / Time No Known Allergies Allergy Verified 08/05/20 21:04 Home Medications Home Medications Medication Instructions Recorded Confirmed Type metformin 1,000 mg PO BIDM 10/22/18 08/05/20 History clopidogrel 75 mg PO QAM 12/25/18 08/05/20 History empagliflozin [Jardiance] 10 mg PO QAM 12/25/18 08/05/20 History metoprolol tartrate 25 mg PO BID 12/25/18 08/05/20 History rosuvastatin 40 mg PO QAM 12/25/18 08/05/20 History lisinopril 2.5 mg PO QAM 08/05/20 08/05/20 History nitroglycerin [Nitrostat] 0.4 mg SUBLINGUAL DIRECTED PRN 08/05/20 08/05/20 History Patient History Medical History (Updated 08/06/20 @ 05:17 by Gabe Foster MD) CAD (coronary artery disease), [place] coronary artery Diabetes Diabetes mellitus type 2 in nonobese Hypertension Kidney stones Non-ST elevated myocardial infarction (non-STEMI) NSTEMI (non-ST elevated myocardial infarction) Obesity (BMI 30.0-34.9) Ureterolithiasis Surgical History (Updated 08/06/20 @ 10:05 by Margareth Shipley MD) H/O heart artery stent H/O lithotripsy History of appendectomy Hx of decompressive lumbar laminectomy Previous back surgery Social History Smoking Status: Former smoker Smoking End Date: 20 years ago; Second Hand Exposure: Yes; Hx Alcohol Use: Yes Alcohol type: beer Hx Substance Use: Yes Last Used Substance: Unknown Preferred Language: Divehi Communication Ability: Effective Splunk Consultant Required: No Beliefs That Will Affect Care: None Current Living Situation: Significant Other Other Information That Helps Us Care for You: No Feels Safe at Home: Yes Safety Concerns: Feels Safe At This Time Assistive Devices: None Review of Systems Review of Systems: All systems reviewed & are unremarkable except as noted in HPI & below Physical Exam Constitutional: WD/WN, vitals as above Eyes: PERRL, conjunctivae normal, anicteric sclerae ENMT: external ear and nose normal, oropharynx normal Neck: trachea midline, no thyromegaly Respiratory: normal respiratory effort, lungs clear to auscultation Cardiovascular: RRR, no murmur, no edema Gastrointestinal (Abdomen): normal bowel sounds, soft, nontender, no hepatosplenomegaly Skin: no rashes, warm and dry Psychiatric: A+Ox3, euthymic affect Results & Data ([facility]) Vital Signs (Past 12 Hours) Vital Signs Temp Pulse Pulse Resp BP Pulse Ox 08/06/20 11:22 37.2 C 77 16 132/69 99 08/06/20 07:41 37.0 C 92 H 16 106/50 L 93 08/06/20 07:18 76 08/06/20 05:25 37.1 C 88 14 105/62 96 08/06/20 01:00 102 H PG Care Time/CCT Total # of Minutes Spent Total Time Spent with Patient: Total time spent is greater than 50% in coordination of care (as documented) at patient's floor/unit and/or counseling patient: Coding Level of Care Code 97395 Inpt Consult Level 3 Diagnoses Hematemesis K92.0
--- NOTE | 2020-08-06 16:04 | Discharge Summary ---
Date of Service August 06, 2020 Admission HPI Per Admitting Provider The patient is a 39-year-old male with a past medical history including diabetes mellitus type 2, dyslipidemia, nicotine abuse, elevated troponin, previous history of obesity with BMI 30.0-34.9, history of lithotripsy, history of decompressive lumbar laminectomy, history of non-STEMI, and history of episodic severe vomiting. He was recently at a of a close family member, and this was very stressful. He denies any COVID-19 exposures. He does smoke marijuana daily. Family members do note that he periodically has uncontrolled vomiting, which is very forceful. In the emergency department, he was Gastroccult positive. He received: Famotidine 20 mg IV Compazine 10 mg IV, Benadryl 25 mg IV, Protonix 40 mg IV and Reglan 10 mg IV, with improvement in symptoms. EKG showed right bundle branch block with no acute ST-T changes. Chest x-ray was negative. Admission Exam Per Admitting Provider The patient is awake, alert and oriented 3, mildly lethargic from treatment medications, well developed and well nourished, normocephalic and atraumatic, lying in bed and in no acute distress. HEENT--PERRL, EOMI, mucous membranes and oropharynx dry. Neck--supple. No JVD. No bruits. Thyroid normal, trachea midline, no adenopathy. Heart--normal S1 and S2. No murmurs, rubs or gallops. Lungs--clear bilaterally, no respiratory distress, no accessory muscle use. Abdomen--normal bowel sounds and soft. Nontender. Nondistended, no hernias or masses, no organomegaly. Extremities--no cyanosis or clubbing. No edema. Dermatologic--normal skin turgor, normal color, no abnormal lymph nodes, no rash. Neurologic--cranial nerves II through XII grossly intact. Rheumatologic--normal range of motion. Psychiatric--normal affect. Principal Diagnosis Dang Marcelo Tear Discharge Exam Constitutional well developed, well nourished and + well hydrated; no acute distress Eyes PERRL, conjunctivae normal, anicteric sclerae Respiratory normal respiratory effort, lungs clear to auscultation able to speak in complete sentences; no audible wheezes Cardiovascular RRR, no murmur, no edema Heart Sounds: no gallop, no murmur and no cardiac rub Gastrointestinal (Abdomen) normal bowel sounds, soft, nontender, no hepatosplenomegaly Discharge Data Allergies Allergy/AdvReac Type Severity Reaction Status Date / Time No Known Allergies Allergy Verified 08/05/20 21:04 Consultations 08/05/20 20:52 ED Decision to Admit Stat 08/06/20 00:34 Consult Gastroenterology Routine Diabetes Follow up Diabetes Follow-up Needed for HgbA1c >9% Hospital Course (1) Hematemesis: 39 yo M with a hx CAD, HTN, DM2 admitted for multiple episodes hematemesis and concern for dang-marcelo tear. Hemodynamically stable, no need for emergent endoscopy. Hg stable at 14 on discharge. Patient had not had any emesis since admission and tolerated eating well without nausea. Given that he was not a candidate for urgent intervention and was eager to get home and attested to being able to follow up in [place], the decision was made for discharge. New medications: - pantoprazole 40 mg BID - sucralfate 1g ACHS Medications stopped: Plavix (note from Cardiology in Oct 2018 stated dual antiplatelet therapy for 1 year) A1c found to be 10.0 while in the hospital. Recommend increasing diabetic therapy and lifestyle changes. (2) Hypertension: (3) CAD (coronary artery disease), [place] coronary artery: (4) Type 2 diabetes mellitus: (5) Dyslipidemia: (6) Nicotine abuse: Total Time Total Time Spent Total Time Spent (In Minutes): >30 Discharge Plan Discharge Items Patient Disposition: Home - Self-Care Reason For Visit: HEMATEMESIS Discharge Diagnosis: Dang Marcelo Tear Activity: Resume your previous activity Non-emergency contact: Primary Care Provider Call non-emergency contact if: your symptoms worsen Follow-up/Referrals: Markel Brewster MD [Primary Care Provider] - (A follow up appointment to visit your PCP will be made for you. A [facility] Secretary will phone you with your appointment time and date.) Diet: Carb Consistent or DM2 and Heart Healthy Addtl Attending Provider Instructions: You were evaluated in the hospital for bloody vomiting that was found to be likley due to a dang marcelo tear from your repeated vomiting episodes prior to that. You were hemodynamically stable after staying overnight with a stable Hemoglobin of 14. You were seen by gastroenterology who determined that you would need an upper endoscopy however it does not need to be emergent. Medications started: Pantoprazole 40 mg twice a day Sucralfate 1g 4 times a day x 10 days Follow up with your primary care provider and a pharmacy delivery driver in [place] to ensure clearance of the bleeding and that no other process is going on. Pending Studies at Discharge: No Stand-Alone Forms: [facility], Smoking Cessation Medications and DC Order Prescriptions: New pantoprazole 40 mg tablet,delayed release (DR/EC) 40 mg PO BID 14 Days Qty: 28 RF: 0 sucralfate 1 gram tablet 1 g PO ACHS 28 Days Qty: 28 RF: 0 Continued clopidogrel 75 mg tablet 75 mg PO QAM RF: 0 rosuvastatin 40 mg tablet 40 mg PO QAM RF: 0 metoprolol tartrate 25 mg tablet 25 mg PO BID RF: 0 Jardiance 10 mg tablet 10 mg PO QAM RF: 0 metformin 1,000 mg tablet 1,000 mg PO BIDM RF: 0 nitroglycerin [Nitrostat] 0.4 mg tablet, sublingual 0.4 mg Sublingual DIRECTED PRN (Reason: chest pain) RF: 0 lisinopril 2.5 mg Tablet 2.5 mg PO QAM RF: 0 Discharge Orders: Discharge Order (Routine); Ordered 08/06/20 Ordered By: Margareth Arzola/Other Patient Handouts: Managing Type 2 Diabetes, Dang-Marcelo Tear Admission Data Admit Date/Time: 08/05/20 22:33 Attending Provider: Sid Dunne Admit Provider: Gabe Foster Primary Care Provider: Markel Brewster Other Providers: Gabe Foster ; Abel Ware ; Margareth Shipley Other Interventions: Discharge Summary Assessment (RN) Last Done: 08/06/20 13:21 Supervising Physician Co-Signing Physician Notes I personally examined the patient and verified all page points of history and exam, discussed case, and agree with decision making with Dr Shipley. feeling better no further nausea or vomiting no further blood GI input appreciated pt willing to get scope as outpt back home vitals noted nad heent nc at mmm breathing unlabored no accessory muscles good effort skin no rashes no pallor or icterus abd soft nd nt no masses or organomegaly hematemesis - fortunately hemodynamically stable throughout - did have a drop in Hgb - may have represented a degree of acute blood loss but didn't even reach point of anemia - and again with bleeding stopped quite reassuring picture. most likely dang-jose tear but should have scope - prefers to do as outpt. PPI bid, stable for home uncontrolled DM2 -extensive discussion on critical importance of lifestyle and suggested 2hr pp glucoses to learn from foods stable for home, otherwise as above Resident Activity Tracking Resident Involvement: Resident Care Provided Care Provided: Adult Hospital Medicine
--- NOTE | 2020-08-06 17:48 | Billing Data ---
Date of Service August 06, 2020 Coding Level of Care Code D/C Day Management >30 mins
== END 2020-08-06 13:45 | disposition home or self-care (01) ==
LOC: ED 18:19 → 2N 22:33 → SUATTDRO 22:33 → INTOOBSV 22:33 → 2N 08-06 00:19